=== PATIENT | female | born 1980 | race Caucasian/White ===

== ENCOUNTER → 2017-06-18 | Outpatient (CLI) | payer OTHER ==
--- NOTE | 2017-06-18 16:55 | XR ---
EXAMINATION TYPE: XR foot complete LT DATE OF EXAM: 06/18/2017 COMPARISON: NONE HISTORY: Twisted ankle TECHNIQUE: 3 views FINDINGS: Metatarsals appear intact. I see no fracture nor dislocation. There is a small plantar calc aneal spur. IMPRESSION: No acute abnormality of the left foot.
--- NOTE | 2017-06-18 16:56 | XR ---
EXAMINATION TYPE: XR ankle complete LT DATE OF EXAM: 06/18/2017 COMPARISON: NONE HISTORY: Twisted ankle TECHNIQUE: 3 views FINDINGS: Ankle mortise is anatomic. There is a small plantar calcaneal spur. I see no fracture nor d islocation. IMPRESSION: Calcaneal spurring. No fracture.
== END | disposition home or self-care (01) ==
LOC: LABWHC1 16:05
PROVIDERS: ATTEND Emergency Medicine
DX: S93.402A Sprain of unspecified ligament of left ankle, initial encounter (principal); M77.32 Calcaneal spur, left foot; S93.602A Unspecified sprain of left foot, initial encounter; N91.2 Amenorrhea, unspecified
CPT/HCPCS: 81025

== ENCOUNTER → 2017-06-27 | Outpatient (CLI) | payer OTHER ==
--- NOTE | 2017-06-27 21:37 | MR ---
Left foot MRI HISTORY: Sprain, pain Multiplanar multisequence imaging through the left foot correlated to left foot plain film 06/18/2017 Soft tissue swelling is noted over the dorsum of the foot. Subcutaneous edema changes are present. Timothy ne marrow signal is normal. No evident fracture. There is some fluid signal along the peroneal longus and brevis tendons compatible with tenosynovitis. Small amount of fluid signal also present along th e ankle flexor tendons. The Achilles tendon is intact. Plantar aponeurosis is intact. Subcutaneous ed yana also present along the ankle. Alignment is maintained. Small ankle joint effusion. IMPRESSION: Soft tissue swelling. No evident fracture.
== END | disposition home or self-care (01) ==
LOC: RADMRIMAIN 20:48
PROVIDERS: ATTEND Emergency Medicine
DX: M79.89 Other specified soft tissue disorders (principal)

== ENCOUNTER 2019-06-22 07:16 | Day surgery (SDC) | payer OTHER ==
[2019-06-18 10:44] VITALS: BMI 48.6
[~2019-06-22 07:16] MED LIST: LACTATED RINGERS 1,000 ML IV SCH; LIDOCAINE 1% 20 ML VIAL (10MG/ML) FOR IV START INTRADERMA PRN
[2019-06-22 08:12] VITALS: TEMP 98.9
[2019-06-22] MEDS ORDERED: ONDANSETRON 4 MG/2 ML VIAL ONE (10:10)
[2019-06-22] MEDS ORDERED: LIDOCAINE 1% INJ 10MG/ML (20 ML MDV) ONE (10:10)
[2019-06-22] MEDS ORDERED: PROPOFOL 10 MG/ML 20 ML VIAL IV ONE (10:10)
--- NOTE | 2019-06-22 10:35 | P.PCN ---
Date of Procedure: 06/22/19 Description of Procedure: BRIEF HISTORY: 38-year-old female who presents for outpatient EGD. The patient has a history significant for heartburn since 2003. Report worsening over the past 6 months. Patient has reflux with anything she eats or drinks. Patient also reported regurgitation, daily nausea primarily in the morning with occasional vomiting. No dysphagia or odynophagia. Patient also had hoarse throat and when heartburn is severe right upper quadrant pain which radiates into her back. She wakes up to 3 times per week with reflux. PROCEDURE PERFORMED: Esophagogastroduodenoscopy with biopsy. PREOPERATIVE DIAGNOSIS: GERD, epigastric and right upper quadrant pain. ESTIMATED BLOOD LOSS: Minimal. IV sedation per anesthesia. PROCEDURE: After informed consent was obtained, the patient was brought into the endoscopy unit. IV sedation was administered by Anesthesia under continuous monitoring. Initially the Olympus GIF-190 video endoscope was inserted into the mouth. Esophagus intubated without any difficulty. It was gradually advanced into the stomach and duodenum and carefully examined. The bulb and the second part of the duodenum appeared normal, with biopsies taken. The scope at this time was withdrawn to the stomach, adequately insufflated with air, and upon careful examination, mucosa of the antrum, body, cardia and the fundus appeared normal except for some mild scattered erythema in the antrum and body suggestive of mild gastritis with biopsies taken. The scope was then withdrawn into the esophagus. Small 1 cm hiatal hernia. The GE junction was located at 36 cm from the incisors with biopsies. The esophagus appeared normal, with mild esophageal biopsies taken. There were no erosions or ulcerations seen and the patient tolerated the procedure well. IMPRESSION: 1. Mild gastritis antrum and body, biopsied. 2. Small hiatal hernia. 3. Biopsies of the duodenum, GE junction and midesophagus. RECOMMENDATIONS: The findings of this examination were discussed with the patient and her . Follow-up with gastroenterology as previously scheduled. Await pathology from biopsies. Continue current PPI therapy, currently on omeprazole 40 mg daily.
[2019-06-22 10:45] VITALS: RESP 16
[2019-06-22] MEDS ORDERED: ONDANSETRON 4 MG/2 ML VIAL IVP ONE (10:47)
[2019-06-22 10:58] VITALS: BP 105/66; PULSE 67
== END 2019-06-22 11:40 | disposition home or self-care (01) ==
LOC: ORWHC2ENDO 07:16
PROVIDERS: ATTEND Internal Medicine
DX: K44.9 Diaphragmatic hernia without obstruction or gangrene (principal); K29.80 Duodenitis without bleeding; R59.0 Localized enlarged lymph nodes; K29.50 Unspecified chronic gastritis without bleeding; K31.7 Polyp of stomach and duodenum; K21.0 Gastro-esophageal reflux disease with esophagitis; Z87.891 Personal history of nicotine dependence; Z79.899 Other long term (current) drug therapy; Z88.4 Allergy status to anesthetic agent; Z88.0 Allergy status to penicillin
CPT/HCPCS: 81025; 88305; 43239; J2405; J2001; J2704

== ENCOUNTER → 2019-06-22 | Outpatient (CLI) | payer OTHER ==
--- NOTE | 2019-06-22 15:55 | US ---
EXAMINATION TYPE: US abdomen limited DATE OF EXAM: 06/22/2019 COMPARISON: NONE CLINICAL HISTORY: R10.13 Epigastris Pain, R10.11 RUQ Pain, R11.2 Nausea w/vomi. RUQ pain, N/V EXAM MEASUREMENTS: Liver Length: 17.4 cm Gallbladder Wall: 0.3 cm CBD: 0.6 cm Right Kidney: 10.3 x 4.0 x 5.3 cm large body habitus and bowel gas limits exam Pancreas: limited views appear wnl Liver: difficult to penetrate Gallbladder: appearance of sludge within, wall in borderline thick Evidence for sonographic Alexander's sign: YES, patient could not tolerate pressure over GB, very cinda seous CBD: wnl Right Kidney: limited views appear wnl IMPRESSION: 1. Fatty liver. 2 gallbladder sludge.
== END | disposition home or self-care (01) ==
LOC: RADUSWWP 06:43
PROVIDERS: ATTEND Family Medicine
DX: K76.0 Fatty (change of) liver, not elsewhere classified (principal); K82.8 Other specified diseases of gallbladder; R11.2 Nausea with vomiting, unspecified
CPT/HCPCS: 76705

== ENCOUNTER → 2020-07-20 | Outpatient (CLI) | payer OTHER ==
--- NOTE | 2020-07-20 14:48 | XR ---
EXAMINATION TYPE: XR abdomen 2V DATE OF EXAM: 07/20/2020 COMPARISON: NONE HISTORY: Pain TECHNIQUE: Single supine KUB image of the abdomen is obtained FINDINGS: Small bowel demonstrates no evidence for dilatation or air fluid levels. Gas and fecal material is seen in non-distended colon. No convincing evidence for pneumoperitoneum. No unusual calcifications. The lung bases are clear. The osseous structures are intact. IMPRESSION: 1. Overall nonobstructive bowel gas pattern.
== END | disposition home or self-care (01) ==
LOC: RADXRYALE 14:27
PROVIDERS: ATTEND Physician Assistant Medical
DX: R10.814 Left lower quadrant abdominal tenderness (principal); R31.9 Hematuria, unspecified
CPT/HCPCS: 74019

== ENCOUNTER 2020-09-06 11:14 | Emergency (ER) | payer OTHER ==
--- NOTE | 2020-09-06 11:21 | ED ---
URI HPI - General Chief Complaint: Upper Respiratory Infection Stated Complaint: Chest congestion Time Seen by Provider: 09/06/20 11:20 Source: patient Mode of arrival: ambulatory Limitations: no limitations - History of Present Illness Initial Comments: Patient is a 39-year-old female presenting to the emergency department with a chief complaint of cough. Patient reports the symptoms started yesterday with a sore throat and has gradually progressed into a nonproductive cough. She also reports some shortness of breath but denies any wheezing. She does report some chest discomfort after coughing fits which then immediately improves. Denies history of asthma, COPD. Patient states she is a former smoker and she stopped about 8 years ago. She does report some chills but denies any fevers or night sweats. States that she is not aware of anybody tested positive for Covid that she might have been exposed to. - Related Data Previous Rx's Medication Instructions Recorded Guaifenesin/Dextromethorphan 1 each PO BID #30 tab 09/06/20 [Mucinex Dm ER 1,200-60 mg Tab] Allergies Allergy/AdvReac Type Severity Reaction Status Date / Time amoxicillin Allergy Unknown Verified 09/06/20 12:31 cephalexin Allergy Swelling Verified 09/06/20 12:31 Penicillins Allergy Unknown Verified 09/06/20 12:31 Review of Systems ROS Statement: Those systems with pertinent positive or pertinent negative responses have been documented in the HPI. ROS Other: All systems not noted in ROS Statement are negative. Past Medical History Past Medical History: No Reported History Additional Past Medical History / Comment(s): SEVERE HEARTBURN, VOMITING FOR PAST 6 MONTHS. DVT in arms. History of Any Multi-Drug Resistant Organisms: None Reported Past Surgical History: Cholecystectomy, Tonsillectomy Past Anesthesia/Blood Transfusion Reactions: No Reported Reaction, Motion Sickness Smoking Status: Former smoker Past Alcohol Use History: Occasional Past Drug Use History: None Reported - Past Family History Father Family Medical History: Blood Disorder, Pulmonary Embolus Additional Family Medical History / Comment(s): "HAS MESH SCREENS IN LATA LEGS" General Exam Limitations: no limitations General appearance: alert, in no apparent distress, obese Head exam: Present: atraumatic, normocephalic, normal inspection Eye exam: Present: normal appearance, PERRL, EOMI Pupils: Present: normal accommodation ENT exam: Present: normal exam, normal oropharynx, mucous membranes moist, TM's normal bilaterally, normal external ear exam Neck exam: Present: normal inspection, full ROM. Absent: tenderness, lymphadenopathy Respiratory exam: Present: normal lung sounds bilaterally. Absent: respiratory distress, wheezes, rales, rhonchi, stridor, chest wall tenderness, accessory muscle use, decreased breath sounds Cardiovascular Exam: Present: regular rate, normal rhythm, normal heart sounds Extremities exam: Present: normal inspection, full ROM, normal capillary refill. Absent: tenderness Back exam: Present: normal inspection, full ROM. Absent: tenderness, CVA tenderness (R), CVA tenderness (L) Neurological exam: Present: alert, oriented X3, CN II-XII intact, normal gait Psychiatric exam: Present: normal affect, normal mood Skin exam: Present: warm, dry, intact, normal color. Absent: rash Course Vital Signs 09/06/20 09/06/20 11:16 11:24 Temperature 98.2 F Pulse Rate 79 Respiratory 18 20 Rate Blood Pressure 137/70 O2 Sat by Pulse 99 Oximetry Medical Decision Making - Medical Decision Making Patient is a 39-year-old female presenting to the emergency department chief complaint of cough. Physical examination, patient is clear to auscultation. ENT examination is unremarkable. Chest x-ray is negative. Coag testing pending. She was advised to self isolated take Tylenol if she develops a fever until she received the results of the culture testing. EKG shows sinus arrhythmia. She does not have any pleuritic chest pain. She is PERC negative. Symptoms of benign well for one day. No treatment necessary at this time. Patient will be given symptomatic relief. Vitals are within normal limits. Strict return parameters were thoroughly discussed patient was understanding and agreeable. Case discussed with physician. - EKG Data EKG Comments: Sinus arrhythmia. Ventricular rate 65, PA 130, QRS 90, QTC 430. Inverted T waves in lead 3. Disposition Clinical Impression: Bronchitis, acute, Cough Disposition: HOME SELF-CARE Condition: Stable Instructions (If sedation given, give patient instructions): Acute Bronchitis (ED) Additional Instructions: Take prescribed medication as directed. Follow with her primary care physician. Return to emergency department if symptoms worsen. Prescriptions: Guaifenesin/Dextromethorphan [Mucinex Dm ER 1,200-60 mg Tab] 1 each PO BID #30 tab Is patient prescribed a controlled substance at d/c from ED?: No Referrals: Santana Loyola DO [Primary Care Provider] - 1-2 days Time of Disposition: 12:42
--- NOTE | 2020-09-06 12:06 | XR ---
EXAMINATION TYPE: XR chest 2V DATE OF EXAM: 09/06/2020 COMPARISON: Chest x-ray October 12, 2011. HISTORY: Cough and congestion. TECHNIQUE: Frontal and lateral views of the chest are obtained. FINDINGS: There is no focal air space opacity, pleural effusion, or pneumothorax seen. The cardiac silhouette size is within normal limits. The osseous structures are intact. Cholecystectomy clips a re noted on current study. IMPRESSION: No suspicious acute pulmonary process.
[2020-09-06 12:52] VITALS: BP 139/100; PULSE 64; RESP 16; TEMP 98
== END 2020-09-06 12:50 | disposition home or self-care (01) ==
LOC: EC 11:14
DX: J20.9 Acute bronchitis, unspecified (principal); Z20.828 Contact with and (suspected) exposure to other viral communicable diseases; Z88.0 Allergy status to penicillin; Z88.1 Allergy status to other antibiotic agents; Z87.891 Personal history of nicotine dependence; Z86.718 Personal history of other venous thrombosis and embolism
CPT/HCPCS: 93005; 71046; 99284; U0003

== ENCOUNTER 2020-09-20 10:55 | Day surgery (SDC) | payer OTHER ==
[2020-09-16 09:21] VITALS: BMI 44.2
[~2020-09-20 10:55] MED LIST changes: +LIDOCAINE 1% (10MG/ML) FOR IV START INTRADERMA PRN; -LIDOCAINE 1% 20 ML VIAL (10MG/ML) FOR IV START INTRADERMA PRN
[2020-09-20 11:19] VITALS: TEMP 98.2
[2020-09-20] MEDS ORDERED: LIDOCAINE 1% INJ 10MG/ML (20 ML MDV) ONE (12:43)
[2020-09-20] MEDS ORDERED: PROPOFOL 10 MG/ML 20 ML VIAL IV ONE (12:43)
--- NOTE | 2020-09-20 13:19 | P.PCN ---
Date of Procedure: 09/20/20 Description of Procedure: BRIEF HISTORY: Patient is a 40-year-old female presenting for abnormal findings, altered bowel function, blood per rectum scheduled for colonoscopy for further evaluation. She reports symptoms of abdominal pain and altered bowel function prior to cholecystectomy. Initially after her surgery symptoms improved. However she reports alternating diarrhea and constipation as well as abdominal pain. PROCEDURE PERFORMED: Colonoscopy with biopsy. PREOPERATIVE DIAGNOSIS: Abnormal findings, blood per rectum, altered bowel function/change in bowel habits. ESTIMATED BLOOD LOSS: Minimal. IV sedation per Anesthesia. PROCEDURE: After informed consent was obtained, the patient, was brought into the endoscopy unit. IV sedation was administered by Anesthesia under continuous monitoring. Digital rectal examination was normal. Initially the Olympus CF-190 flexible v ideo colonoscope was then inserted in the rectum, gradually advanced into the cecum without any difficulty. Careful examination was performed as the scope was gradually being withdrawn. Ileocecal valve and the appendiceal orifice were visualized and appeared normal. Prep was excellent. Mucosa of the cecum, ascending colon, transverse colon, descending colon, sigmoid colon, and rectum appeared normal, with biopsies taken of the right and left colon in the setting of altered bowel function. The terminal ileum was intubated and appeared normal with biopsies taken. Retroflexion was performed in the rectum and no lesions were seen, low-grade internal hemorrhoids. The patient tolerated the procedure well. IMPRESSION: Normal-appearing colon from rectum to cecum., and normal-appearing terminal ileum with random biopsies taken of the terminal ileum as well as the right and left colon in the setting of altered bowel function Internal hemorrhoids and external hemorrhoids. RECOMMENDATIONS: Findings of this examination were discussed with the patient.. Okay to resume diet. Okay to resume medications. Await pathology from biopsies. Would recommend local hemorrhoidal care with warm baths, stool softeners, and local steroid therapy if patient has further hemorrhoidal bleeding. Repeat colonoscopy in 10 years for screening purposes.
[2020-09-20 13:26] VITALS: RESP 16
[2020-09-20 13:42] VITALS: BP 133/79; PULSE 71
== END 2020-09-20 14:22 | disposition home or self-care (01) ==
LOC: ORWHC2ENDO 10:55
PROVIDERS: ATTEND Internal Medicine
DX: K64.8 Other hemorrhoids (principal); K64.4 Residual hemorrhoidal skin tags; K21.9 Gastro-esophageal reflux disease without esophagitis; Z90.49 Acquired absence of other specified parts of digestive tract; Z87.891 Personal history of nicotine dependence; Z86.718 Personal history of other venous thrombosis and embolism; Z79.899 Other long term (current) drug therapy; Z88.1 Allergy status to other antibiotic agents; Z88.0 Allergy status to penicillin
CPT/HCPCS: 81025; 88305; 45380; J2001; J2704

== ENCOUNTER 2021-07-25 18:12 | Emergency (ER) | payer OTHER ==
[2021-07-25 19:32] VITALS: BP 122/58; PULSE 76; RESP 18; TEMP 98.2
--- NOTE | 2021-07-25 19:51 | US ---
EXAMINATION TYPE: US venous doppler duplex LE LT DATE OF EXAM: 07/25/2021 5:52 PM COMPARISON: NONE CLINICAL HISTORY: localized edema R60.0. pain left pop fossa. SIDE PERFORMED: Left TECHNIQUE: The lower extremity deep venous system is examined utilizing real time linear array sonog viviana with graded compression, doppler sonography and color-flow sonography. VESSELS IMAGED: Common Femoral Vein Deep Femoral Vein Greater Saphenous Vein * Femoral Vein Popliteal Vein Proximal Calf Veins (* superficial vessels) Left Leg: Positive for DVT. There is thrombus seen in a pair of deep vessels coming off the mid pop vein. These are believed to be the gastrocnemius vessels. These vessels are non compressible. IMPRESSION: Infrapopliteal deep venous thrombosis of the left calf. Dr. Rea Ahn discussed findings with Cammy Mary RN via the phone on 07/25/2021 7:46 PM at 7:46 PM EST, and results were acknowledged.
[2021-07-25] MEDS ORDERED: ACETAMINOPHEN TAB 500 MG TAB PO STA (20:40)
[2021-07-25 21:57] LABS: Basophils % (A) 0 %; Eosinophils # (A) 0.2 k/uL (0-0.7); Eosinophils % (A) 3 %; HGB 13.9 gm/dL (11.4-16.0); Lymphocytes # (A) 2.7 k/uL (1.0-4.8); Lymphocytes % (A) 29 %; MCH 30.2 pg (25.0-35.0); MCHC 33.9 g/dL (31.0-37.0); MCV 88.9 fL (80.0-100.0); Mean Platelet Volume 9.1; Monocytes # (A) 0.5 k/uL (0-1.0); Monocytes % (A) 5 %; Neutrophils # (A) 5.8 k/uL (1.3-7.7); Neutrophils % (A) 62 %; Platelet Count 158 k/uL (150-450); RBC 4.61 m/uL (3.80-5.40); RDW 13.5 % (11.5-15.5); WBC 9.4 k/uL (3.8-10.6)
[2021-07-25 22:02] LABS: ALT 26 U/L (4-34); AST 33 U/L (14-36); African American GFR (CKD) >90 (>60 ml/min/1.73 sqM); Albumin 4.6 g/dL (3.5-5.0); Alkaline Phosphatase 77 U/L (38-126); Anion Gap 10 mmol/L; Blood Urea Nitrogen 12 mg/dL (7-17); Calcium 9.5 mg/dL (8.4-10.2); Carbon Dioxide 23 mmol/L (22-30); Chloride 105 mmol/L (98-107); Glucose 116 mg/dL (74-99); Non-African American GFR(CKD) >90 (>60 ml/min/1.73 sqM); Potassium 4.1 mmol/L (3.5-5.1); Sodium 138 mmol/L (137-145); Total Bilirubin 0.5 mg/dL (0.2-1.3); Total Protein 7.5 g/dL (6.3-8.2)
[2021-07-25 22:38] LABS: INR 0.9 (<1.2); Partial Thromboplastin Time 19.6 sec (22.0-30.0); Prothrombin Time 9.9 sec (9.0-12.0)
[2021-07-25] MEDS ORDERED: APIXABAN 5 MG TAB PO STA (22:45)
--- NOTE | 2021-07-25 22:49 | ED ---
General Adult HPI - General Chief complaint: Recheck/Abnormal Lab/Rx Stated complaint: DVT+ Time Seen by Provider: 07/25/21 19:46 Source: patient Mode of arrival: ambulatory Limitations: no limitations - History of Present Illness Initial comments: 40-year-old female presents to the emergency room for a chief complaint of DVT. Patient reports that 4 days ago she started to have pain in the left calf. She spoke to her doctor who ordered an outpatient ultrasound and was told she had a DVT. She was sent to the emergency room. Patient denies any chest pain or shortness of breath. Does admit to left calf pain. Patient states that she has had a to professional venous thrombosis in the right arm from a gallbladder surgery in the past and was on eliquis for 6 months or so. 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 - Related Data Home Medications Medication Instructions Recorded Confirmed No Known Home Medications 07/25/21 07/25/21 Allergies Allergy/AdvReac Type Severity Reaction Status Date / Time amoxicillin Allergy Unknown Verified 07/25/21 21:36 cephalexin Allergy Swelling Verified 07/25/21 21:36 Penicillins Allergy Unknown Verified 07/25/21 21:36 Review of Systems ROS Statement: Those systems with pertinent positive or pertinent negative responses have been documented in the HPI. ROS Other: All systems not noted in ROS Statement are negative. Past Medical History Past Medical History: Deep Vein Thrombosis (DVT), GERD/Reflux, Syncope Additional Past Medical History / Comment(s): HEARTBURN back for last few months, DVT in arms after gallbladder surg. July 2019-on blood thinner for 6 mos. after, recent blood in stool, vasovagal syncope History of Any Multi-Drug Resistant Organisms: None Reported Past Surgical History: Cholecystectomy, Tonsillectomy Past Anesthesia/Blood Transfusion Reactions: Previous Problems w/ Anesthesia, Motion Sickness Additional Past Anesthesia/Blood Transfusion Reaction / Comment(s): very slow to wake up after gallbladder surg. Past Psychological History: Anxiety Smoking Status: Former smoker Past Alcohol Use History: Occasional Past Drug Use History: None Reported - Past Family History Father Family Medical History: Blood Disorder, Pulmonary Embolus Additional Family Medical History / Comment(s): "HAS MESH SCREENS IN LATA LEGS" General Exam Limitations: no limitations General appearance: alert Head exam: Present: atraumatic Eye exam: Present: normal appearance, PERRL, EOMI. Absent: scleral icterus ENT exam: Present: normal exam, mucous membranes moist Neck exam: Present: normal inspection, full ROM. Absent: tenderness Respiratory exam: Present: normal lung sounds bilaterally. Absent: respiratory distress, wheezes Cardiovascular Exam: Present: regular rate, normal rhythm, normal heart sounds Extremities exam: Present: full ROM (Full range of motion left lower extremity.), normal capillary refill (Capillary refill less than 2 seconds, DP pulse 2+ left lower extremity), calf tenderness (Patient has left calf tenderness with minimal edema. No significant erythema.) Course Vital Signs 07/25/21 19:25 Temperature 98.2 F Pulse Rate 76 Respiratory 18 Rate Blood Pressure 122/58 O2 Sat by Pulse 98 Oximetry Medical Decision Making - Medical Decision Making Ultrasound outpatient did demonstrate an infrapopliteal DVT of the left calf. Patient reports she has had GI bleeding for the past year or so. Patient did have a colonoscopy for this which revealed internal and external hemorrhoids however no other abnormalities. Laboratory evaluation was obtained and hemoglobin was 13.6. CMP unremarkable. Case was discussed with Dr. Davenport who does agree and starting patient on eliquis. Patient is currently seeing a hemat ologist and she recommend she follows up with the enforcement manager. States that the enforcement manager can decide if she needs a filter or not and refer her as needed. - Lab Data Result diagrams: 07/25/21 21:18 07/25/21 21:18 Lab Results 07/25/21 07/25/21 07/25/21 Range/Units 21:18 21:18 21:18 WBC 9.4 (3.8-10.6) k/uL RBC 4.61 (3.80-5.40) m/uL Hgb 13.9 (11.4-16.0) gm/dL Hct 41.0 (34.0-46.0) % MCV 88.9 (80.0-100.0) fL MCH 30.2 (25.0-35.0) pg MCHC 33.9 (31.0-37.0) g/dL RDW 13.5 (11.5-15.5) % Plt Count 158 (150-450) k/uL MPV 9.1 Neutrophils % 62 % Lymphocytes % 29 % Monocytes % 5 % Eosinophils % 3 % Basophils % 0 % Neutrophils # 5.8 (1.3-7.7) k/uL Lymphocytes # 2.7 (1.0-4.8) k/uL Monocytes # 0.5 (0-1.0) k/uL Eosinophils # 0.2 (0-0.7) k/uL Basophils # 0.0 (0-0.2) k/uL PT 9.9 (9.0-12.0) sec INR 0.9 (<1.2) APTT 19.6 L (22.0-30.0) sec Sodium 138 (137-145) mmol/L Potassium 4.1 (3.5-5.1) mmol/L Chloride 105 (98-107) mmol/L Carbon Dioxide 23 (22-30) mmol/L Anion Gap 10 mmol/L BUN 12 (7-17) mg/dL Creatinine 0.65 (0.52-1.04) mg/dL Est GFR (CKD-EPI)AfAm >90 (>60 ml/min/1.73 sqM) Est GFR (CKD-EPI)NonAf >90 (>60 ml/min/1.73 sqM) Glucose 116 H (74-99) mg/dL Calcium 9.5 (8.4-10.2) mg/dL Total Bilirubin 0.5 (0.2-1.3) mg/dL AST 33 (14-36) U/L ALT 26 (4-34) U/L Alkaline Phosphatase 77 (38-126) U/L Total Protein 7.5 (6.3-8.2) g/dL Albumin 4.6 (3.5-5.0) g/dL Disposition Clinical Impression: DVT (deep venous thrombosis) Disposition: HOME SELF-CARE Condition: Good Instructions (If sedation given, give patient instructions): Deep Vein Thrombosis (ED) Additional Instructions: Please follow up with enforcement manager as soon as possible. Return to the emergency room for any worsening symptoms. Is patient prescribed a controlled substance at d/c from ED?: No Referrals: Santana Loyola DO [Primary Care Provider] - 1-2 days Time of Disposition: 22:44
== END 2021-07-25 23:07 | disposition home or self-care (01) ==
LOC: EC 18:12
DX: I82.402 Acute embolism and thrombosis of unspecified deep veins of left lower extremity (principal); F41.9 Anxiety disorder, unspecified; Z87.891 Personal history of nicotine dependence
CPT/HCPCS: 36415; 80053; 85025; 85610; 85730; 99284

== ENCOUNTER → 2022-03-26 | Outpatient (CLI) | payer OTHER ==
--- NOTE | 2022-03-27 18:07 | CA ---
Transthoracic Echo Report Name: Brenda Madrid Age: 41 Gender: F : 1980 Exam Date: 03/26/2022 10:41 Exam Location: [facility] Ht (in): 63 Wt (lb): 276 Ordering Physician: Santana Loyola DO Attending/Referring Phys: Mirta Rueda PAC Behavioral Medical Director Sybil Irvin RDCS Procedure CPT: Indications: R07.9 Cardiac Hx: Technical Quality: Good Contrast 1: Total Dose (mL): Contrast 2: Total Dose (mL): MEASUREMENTS (Male / Female) Normal Values 2D ECHO LV Diastolic Diameter PLAX 4.5 cm 4.2 - 5.9 / 3.9 - 5.3 cm LV Systolic Diameter PLAX 2.7 cm IVS Diastolic Thickness 0.9 cm 0.6 - 1.0 / 0.6 - 0.9 cm LVPW Diastolic Thickness 1.2 cm 0.6 - 1.0 / 0.6 - 0.9 cm LV Relative Wall Thickness 0.5 RV Internal Dim ED PLAX 1.9 cm LA Volume 45.3 cm 18 - 58 / 22 - 52 cm M-MODE Aortic Root Diameter MM 3.0 cm LA Systolic Diameter MM 3.3 cm LA Ao Ratio MM 1.1 MV E Point Septal Separation 1.2 cm AV Cusp Separation MM 1.7 cm DOPPLER AV Peak Velocity 129.3 cm/s AV Peak Gradient 6.7 mmHg MV Area PHT 6.0 cm Mitral E Point Velocity 94.6 cm/s Mitral A Point Velocity 68.2 cm/s Mitral E to A Ratio 1.4 MV Deceleration Time 126.5 ms TR Peak Velocity 132.7 cm/s TR Peak Gradient 7.0 mmHg Right Ventricular Systolic Press 11.5 mmHg FINDINGS Left Ventricle Normal LV size and systolic function with borderline concentric LVH Left ventricular ejection fraction is estimated at 55-60_ %. Right Ventricle The right ventricle is normal in size and function. Right Atrium The right atrium is normal in size. Left Atrium The left atrium is normal in size. Mitral Valve Structurally normal mitral valve without significant stenosis or prolapse. There is a trace mitral regurgitation. Aortic Valve Structurally normal aortic valve without significant sclerosis or stenosis. There is no aortic regurgitation. Tricuspid Valve Structurally normal tricuspid valve without significant stenosis. Pulmonary artery systolic pressure is normal. Trace tricuspid regurgitation. Pulmonic Valve Structurally normal pulmonic valve without significant stenosis. There is no pulmonic regurgitation. Pericardium Normal pericardium without effusion. Aorta Normal aortic root dimension. CONCLUSIONS Normal LV size and systolic function. Mild mitral and tricuspid insufficiency. No pericardial effusion Previewed by: Dr. Son Hart MD (Electronically Signed) Final Date: 27 March 2022 18:06
--- NOTE | 2022-03-28 08:24 | EST ---
EXERCISE STRESS AGE: 41 SEX: F HT: 5'3" WT: 608 lbs. PROTOCOL: Андрей STAGE: 2 DURATION OF EXERCISE: 5 min HEART RATE REST: 77 BLOOD PRESSURE REST: 145/72 MAXIMUM HEART RATE ACHIEVED: 172 MAXIMUM BLOOD PRESSURE: 225/81 85% MPHR: 152 100% MPHR: 179 METS: 5.4 INDICATIONS: Chest pain CLINICAL INFORMATION: Baseline EKG revealed normal sinus rhythm without significant ST-T changes. Patient walked on standard Андрей protocol for 4 minutes 54 seconds and achieved a maximal heart rate of 172 beats per minute, which is well above 85% of predicted maximal. There was a lot of artifact. Patient had somewhat of a hypertensive response with a peak pressure of 220/81. EKG did not reveal any ST-segment changes to indicate ischemia. 1. By EKG criteria, this is a negative stress test with limited exercise capacity. 2. There was hypertensive response to exercise. 3. No evidence suggest any ischemia. MMODL / IJN: [id number] /
== END | disposition home or self-care (01) ==
LOC: RADNMMAIN 10:30
PROVIDERS: ATTEND Family Medicine
DX: I08.1 Rheumatic disorders of both mitral and tricuspid valves (principal); I10 Essential (primary) hypertension
CPT/HCPCS: 93017; 93306

== ENCOUNTER 2022-03-29 18:48 | Emergency (ER) | payer OTHER ==
[2022-03-29 19:08] VITALS: RESP 16; TEMP 98.2
--- NOTE | 2022-03-29 20:08 | XR ---
EXAMINATION: XR chest 2V DATE AND TIME: 03/29/2022 7:31 PM CLINICAL INDICATION: PHH; Chest Pain TECHNIQUE: Departmental protocol COMPARISON: 09/06/2020 FINDINGS: The lungs are well-expanded and clear. Previously seen 1 cm opacity superimposed over the right posterior lateral ninth rib at the left cost ophrenic angle is redemonstrated and can be seen on radiographs back to 2010, most consistent with he aled granulomatous process. The pleural spaces are negative. The cardiac silhouette is not enlarged; remainder of the mediastinal silhouette is unremarkable. The skeletal structures and soft tissues are negative for acute findings. IMPRESSION: 1. NO ACUTE PROCESS. 2. Previously seen 1 cm opacity superimposed over the right posterior lateral ninth rib at the left costophrenic angle is redemonstrated and can be seen on radiographs back to 2010, presumably healed g ranulomatous process.
[2022-03-29] MEDS ORDERED: ONDANSETRON 4 MG/2 ML VIAL IVP STA (21:09)
[2022-03-29 21:46] LABS: Basophils # (A) 0.1 k/uL (0-0.2); Basophils % (A) 1 %; Eosinophils # (A) 0.2 k/uL (0-0.7); Eosinophils % (A) 2 %; HCT 42.1 % (34.0-46.0); HGB 13.4 gm/dL (11.4-16.0); Lymphocytes # (A) 2.5 k/uL (1.0-4.8); Lymphocytes % (A) 26 %; MCH 27.8 pg (25.0-35.0); MCHC 31.9 g/dL (31.0-37.0); MCV 87.1 fL (80.0-100.0); Mean Platelet Volume 7.8; Monocytes # (A) 0.4 k/uL (0-1.0); Monocytes % (A) 4 %; Neutrophils # (A) 6.4 k/uL (1.3-7.7); Neutrophils % (A) 67 %; Platelet Count 202 k/uL (150-450); RBC 4.83 m/uL (3.80-5.40); RDW 13.2 % (11.5-15.5); WBC 9.7 k/uL (3.8-10.6)
[2022-03-29 22:09] LABS: ALT 32 U/L (4-34); AST 31 U/L (14-36); African American GFR (CKD) >90 (>60 ml/min/1.73 sqM); Alkaline Phosphatase 74 U/L (38-126); Anion Gap 5 mmol/L; Blood Urea Nitrogen 14 mg/dL (7-17); Calcium 8.5 mg/dL (8.4-10.2); Carbon Dioxide 25 mmol/L (22-30); Chloride 107 mmol/L (98-107); Glucose 94 mg/dL (74-99); Non-African American GFR(CKD) >90 (>60 ml/min/1.73 sqM); Potassium 3.7 mmol/L (3.5-5.1); Sodium 137 mmol/L (137-145); Total Bilirubin 0.5 mg/dL (0.2-1.3)
--- NOTE | 2022-03-29 22:29 | CT ---
EXAMINATION TYPE: CT angio thor/abd pel aorta DATE OF EXAM: 03/29/2022 COMPARISON: None HISTORY: chest pain CT DLP: 2848.9 mGycm Automated exposure control for dose reduction was used. CONTRAST: Performed without and with IV Contrast, patient injected with 100 mL of Isovue 370. Images obtained from the thoracic inlet to the floor the pelvis without and with IV contrast. There a re Three-D postprocessed images. The lungs are clear of consolidation. There is 1.5 cm calcified granuloma left lower lobe. There is n o pleural effusion. There is fatty infiltration of the liver. Heart size is normal. No pericardial ef fusion. There are no hilar masses. There is no mediastinal adenopathy. Thoracic aorta is intact. No aneurysm or dissection. No evidence of filling defect in the pulmonary a rteries. Pulmonary arteries appear normal. Spleen is intact. There is no pancreatic mass. There are clips from cholecystectomy. The bile ducts a re nondilated. Kidneys have normal size and contour. There is no hydronephrosis. There is no adrenal mass. There is no retroperitoneal adenopathy. Appendix is posterior and appears normal. The bladder d istends smoothly. There is no inguinal hernia. There is thinwall cystic pelvic mass that measures 8.5 cm in diameter above the right side of the uterus and consistent with ovarian cyst. There is a small er cyst on the left ovary measuring 4.2 cm. No free fluid in the pelvis. There multiple sigmoid diverticula. No diverticulitis. There is no mesenteric edema. There is no ascites or free air. No sign of a bowel obstruction. Uterus is anteverted. Thoracic vertebra have normal alignment. There is no compression fracture. Lumbar bacilio tebra have normal alignment. Disc spaces are normal. The bony pelvis is intact. The hip joints appear intact. There is 2 cm fat-containing umbilical hernia. Abnormal aorta has normal size. No aneurysm or dissection. There is arterial flow in the celiac arter y and superior mesenteric artery. There is arterial flow in the renal and iliac and femoral arteries. No hemodynamic stenosis. There is arterial flow in the inferior mesenteric artery. IMPRESSION: Negative CT angiogram of the chest abdomen pelvis. No evidence of pulmonary embolism. No suspicious p ulmonary mass. Colonic diverticulosis without diverticulitis. Bilateral large ovarian cysts and larger on the right side.
[2022-03-29] MEDS: NITROGLYCERIN SL TABS 0.4 MG TAB SUBLINGUAL PRN ×2 (22:45→22:51)
--- NOTE | 2022-03-29 23:17 | ED ---
Chest Pain HPI - General Chief Complaint: Chest Pain Stated Complaint: Chest pain Time Seen by Provider: 03/29/22 20:49 Source: patient Mode of arrival: ambulatory Limitations: no limitations - History of Present Illness Initial Comments: Patient is a 41-year-old female who presents to the emergency department with a chief complaint of chest pain. Patient states her chest pain has been occurring for 2 weeks. She states at first it felt more like chest tightness the progression of 2 weeks has became more of an aching pain, localized to the center of her chest. There is no radiation to the arms or jaw. Patient states she went to her primary care provider where she underwent stress test and echo. Patient states she was told the results were normal and because of this was not referred to cardiology. Patient has never seen a track service worker before. She has never experienced this pain before. Patient sometimes has associated nausea and sweating with the chest pain. Patient became concerned today when the chest pain started radiating to her back, sharp in nature. She also reports bilateral feet swelling. She denies pain or swelling of the legs. She denies history of aortic dissection, aortic aneurysm, heart attack, hypertension, hyperlipidemia, diabetes, coronary artery disease, and stroke. 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 No PE history. Patient is currently on Eliquis. She does not endorse shortness of breath. Family history of cardiac disease include her father who has diabetes and hypertension and her mother who has diabetes. - Related Data Home Medications Medication Instructions Recorded Confirmed Apixaban [Eliquis] 5 mg PO BID 03/29/22 03/29/22 Ibuprofen [Motrin Ib] 800 mg PO Q8H PRN 03/29/22 03/29/22 Omeprazole Magnesium [PriLOSEC OTC] 20 mg PO BID 03/29/22 03/29/22 Allergies Allergy/AdvReac Type Severity Reaction Status Date / Time amoxicillin Allergy Swelling Verified 03/29/22 23:35 cephalexin Allergy Swelling Verified 03/29/22 23:35 Penicillins Allergy Anaphylaxis Verified 03/29/22 23:35 Review of Systems ROS Statement: Those systems with pertinent positive or pertinent negative responses have been documented in the HPI. ROS Other: All systems not noted in ROS Statement are negative. Past Medical History Past Medical History: Deep Vein Thrombosis (DVT), GERD/Reflux, Syncope Additional Past Medical History / Comment(s): HEARTBURN back for last few months, DVT in arms after gallbladder surg. July 2019-on blood thinner for 6 mos. after, recent blood in stool, vasovagal syncope History of Any Multi-Drug Resistant Organisms: None Reported Past Surgical History: Cholecystectomy, Tonsillectomy Past Anesthesia/Blood Transfusion Reactions: Previous Problems w/ Anesthesia, Motion Sickness Additional Past Anesthesia/Blood Transfusion Reaction / Comment(s): very slow to wake up after gallbladder surg. Past Psychological History: Anxiety Smoking Status: Former smoker Past Alcohol Use History: Occasional Past Drug Use History: None Reported - Past Family History Father Family Medical History: Blood Disorder, Pulmonary Embolus Additional Family Medical History / Comment(s): "HAS MESH SCREENS IN LATA LEGS" General Exam Limitations: no limitations General appearance: alert Head exam: Present: atraumatic, normocephalic, normal inspection Eye exam: Present: normal appearance, PERRL, EOMI. Absent: scleral icterus, conjunctival injection, periorbital swelling Neck exam: Present: normal inspection, full ROM Respiratory exam: Present: normal lung sounds bilaterally. Absent: respiratory distress, wheezes, rales, rhonchi, stridor Cardiovascular Exam: Present: regular rate, normal rhythm, normal heart sounds. Absent: systolic murmur, diastolic murmur, rubs, gallop, clicks, JVD, S3, S4 GI/Abdominal exam: Present: soft, normal bowel sounds. Absent: distended, tenderness, guarding, rebound, rigid Extremities exam: Present: normal capillary refill, pedal edema. Absent: calf tenderness Back exam: Present: normal inspection. Absent: CVA tenderness (R), CVA tenderness (L), paraspinal tenderness, vertebral tenderness Neurological exam: Present: alert, oriented X3, CN II-XII intact Psychiatric exam: Present: normal affect, normal mood Skin exam: Present: warm, dry, intact, normal color. Absent: rash Course Vital Signs 03/29/22 03/29/22 19:05 22:49 Temperature 98.2 F Pulse Rate 69 81 Respiratory 16 16 Rate Blood Pressure 162/90 124/81 O2 Sat by Pulse 99 98 Oximetry Chest Pain MDM - MDM This is a 41-year-old female who presents for evaluation of chest pain. Thorough history and examination were performed. Patient is well-appearing and in no apparent distress. Heart sounds are normal. No murmurs, rubs, or gallops are appreciated. Bilateral pedal edema is present. Patient has a factor II mutation and multiple DVTs on Eliquis. There is no swelling or pain of the legs. No calf tenderness. Negative Homans sign. Cardiac workup was initiated. EKG shows sinus rhythm with no evidence of ST depression or elevation. Troponin and BNP are within normal limits. Chest x- ray is negative for acute process. Because patient has new onset of sharp back pain presenting with her chest pain there is suspicion for aortic dissection. My suspicion is low as patient does not have risk factors. CT angiogram was ordered which ruled out aortic dissection and other acute process. Patient had stress test and echocardiogram this week with her primary care provider. I reviewed these personally. There is no evidence to suggest any ischemia on stress test though she was hypertensive in response to exercise. Echocardiogram revealed mild mitral and tricuspid insufficiency. Patient's chest pain responded well to 2 doses of nitroglycerin. She states her chest pain is almost completely resolved. Repeat troponin is within normal limits. Heart score is 2. With patient's recent negative stress test and unremarkable echocardiogram symptoms can be managed outpatient. Patient will be discharged with referral to cardiology for further evaluation and management of her chest pain. Return parameters discussed. Patient verbalizes understanding and is agreeable to this plan. Dr. Goode is my attending. Disposition Clinical Impression: Chest pain, Nausea, Back pain Disposition: HOME SELF-CARE Condition: Good Instructions (If sedation given, give patient instructions): Chest Pain (ED) Additional Instructions: Please follow up with operations specialists in 1-2 days. Return to the emergency department if you experience new, concerning, or worsening symptoms. Is patient prescribed a controlled substance at d/c from ED?: No Referrals: Santana Loyola DO [Primary Care Provider] - 1-2 days Jack Miranda MD [STAFF PHYSICIAN] - 1-2 days Time of Disposition: 00:24
[2022-03-30 00:45] VITALS: BP 134/84; PULSE 82
== END 2022-03-30 00:45 | disposition home or self-care (01) ==
LOC: EC 18:48
DX: R07.89 Other chest pain (principal); M54.9 Dorsalgia, unspecified; R11.0 Nausea; K21.9 Gastro-esophageal reflux disease without esophagitis; Z87.891 Personal history of nicotine dependence; Z88.0 Allergy status to penicillin; Z88.1 Allergy status to other antibiotic agents; Z79.899 Other long term (current) drug therapy
CPT/HCPCS: 36415; 93005; 83880; 80053; 84484; 85025; 85730; 71046; 71275; 74174; 99285; 96374; J2405; Q9967

== ENCOUNTER → 2022-06-25 | Outpatient (CLI) | payer OTHER ==
[2022-06-25 13:32] VITALS: BP 113/75; PULSE 62; TEMP 98.8
[2022-06-25 13:44] VITALS: BMI 50.7
[2022-06-25 17:45] LABS: HCT 40.1 % (37.2-46.3); HGB 12.8 g/dL (12.0-15.0); MCH 28.2 pg (27.0-32.0); MCHC 31.9 g/dL (32.0-37.0); MCV 88.3 fL (80.0-97.0); Mean Platelet Volume 11.4 fL (9.5-12.2); NRBC Per 100 WBC 0 /100 WBCS (0.0-0.0); Platelet Count 241 X 10*3/uL (140-440); RBC 4.54 X 10*6/uL (4.10-5.20); RDW 12.8 % (11.5-14.5); WBC 7.32 X 10*3/uL (4.50-10.00)
[2022-06-25 18:07] LABS: African American GFR (CKD) 102.6 (60.0-200.0); Albumin 4.2 g/dL (3.8-4.9); Albumin/Globulin Ratio 1.56 (1.60-3.17); Anion Gap 10.7 mmol/L (10.00-18.00); BUN/Creat Ratio 16.65 Ratio (12.00-20.00); Blood Urea Nitrogen 13.7 mg/dL (9.0-27.0); Calcium 9.2 mg/dL (8.7-10.3); Carbon Dioxide 25.7 mmol/L (20.0-27.5); Globulin 2.7 g/dL (1.6-3.3); Non-African American GFR(CKD) 88.5 (60.0-200.0); Potassium 3.4 mmol/L (3.5-5.5); Total Bilirubin 0.3 mg/dL (0.30-1.20)
--- NOTE | 2022-06-26 16:17 | P.HPBAR ---
Bariatric H&P - History & Physicial H&P Date: 06/26/22 History & Physicial: Visit/CC: new patient Patient initial contact: Initial weight: Initial weight in pounds: Height: 5 ft 3 in Initial BMI: Last weight: Current weight: 129.863 kg Current weight in pounds: 286.30 Current BMI: 50.7 [place] body weight (based on NIH guidelines): 52.163 kg Excess body weight loss: The patient is a 41 year-old F who presents for Bariatric Assessment. Patient presents today for bariatric follow-up. Patient's presurgical. Her current weight is 206 pounds. Her BMI is 51. Past Medical History Past Medical History: Blood Disorder, Deep Vein Thrombosis (DVT), GERD/Reflux, Syncope Additional Past Medical History / Comment(s): HEARTBURN back for last few months, DVT in arms after gallbladder surg. July 2019-on blood thinner for 6 mos. after, and several subsequent DVT's since, Factor II mutation, recent blood/clots in stool, vasovagal syncope History of Any Multi-Drug Resistant Organisms: None Reported Past Surgical History: Cholecystectomy, Tonsillectomy Past Anesthesia/Blood Transfusion Reactions: Previous Problems w/ Anesthesia, Motion Sickness Additional Past Anesthesia/Blood Transfusion Reaction / Comm: very slow to wake up after gallbladder surg. 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, clean since - Past Family History Father Family Medical History: Blood Disorder, Pulmonary Embolus Additional Family Medical History / Comment(s): "HAS MESH SCREENS IN LATA LEGS" Surgical - Exam Vital Signs Temp Pulse BP 98.8 F 62 113/75 06/25/22 13:26 06/25/22 13:26 06/25/22 13:26 - General well developed, well nourished, no distress - Eyes PERRL - ENT normal pinna - Neck no masses - Respiratory normal expansion - Cardiovascular Rhythm: regular - Abdomen Abdomen: soft, non tender Results - Labs 06/25/22 14:13 06/25/22 14:13 Abnormal Lab Results - Last 24 Hours (Table) 06/25/22 06/25/22 Range/Units 14:13 14:13 MCHC 31.9 L (32.0-37.0) g/dL Potassium 3.4 L (3.5-5.5) mmol/L ALT 49 H (8-44) U/L Albumin/Globulin Ratio 1.56 L (1.60-3.17) g/dL Vitamin D 25-Hydroxy 27.2 L (30.0-100.0) ng/mL Diabetes panel 06/25/22 06/25/22 Range/Units 14:13 14:13 Sodium 143 (135-145) mmol/L Potassium 3.4 L (3.5-5.5) mmol/L Chloride 106 (96-109) mmol/L Carbon Dioxide 25.7 (20.0-27.5) mmol/L BUN 13.7 (9.0-27.0) mg/dL Creatinine 0.8 (0.6-1.5) mg/dL Glucose 94 (70-110) mg/dL Hemoglobin A1c 5.6 (0.0-6.0) % Calcium 9.2 (8.7-10.3) mg/dL AST 33 (13-35) U/L ALT 49 H (8-44) U/L Alkaline Phosphatase 81 (41-126) U/L Total Protein 7.0 (6.2-8.2) g/dL Albumin 4.2 (3.8-4.9) g/dL Calcium panel 06/25/22 Range/Units 14:13 Calcium 9.2 (8.7-10.3) mg/dL Albumin 4.2 (3.8-4.9) g/dL Pituitary panel 06/25/22 Range/Units 14:13 Sodium 143 (135-145) mmol/L Potassium 3.4 L (3.5-5.5) mmol/L Chloride 106 (96-109) mmol/L Carbon Dioxide 25.7 (20.0-27.5) mmol/L BUN 13.7 (9.0-27.0) mg/dL Creatinine 0.8 (0.6-1.5) mg/dL Glucose 94 (70-110) mg/dL Calcium 9.2 (8.7-10.3) mg/dL Adrenal panel 06/25/22 Range/Units 14:13 Sodium 143 (135-145) mmol/L Potassium 3.4 L (3.5-5.5) mmol/L Chloride 106 (96-109) mmol/L Carbon Dioxide 25.7 (20.0-27.5) mmol/L BUN 13.7 (9.0-27.0) mg/dL Creatinine 0.8 (0.6-1.5) mg/dL Glucose 94 (70-110) mg/dL Calcium 9.2 (8.7-10.3) mg/dL Total Bilirubin 0.30 (0.30-1.20) mg/dL AST 33 (13-35) U/L ALT 49 H (8-44) U/L Alkaline Phosphatase 81 (41-126) U/L Total Protein 7.0 (6.2-8.2) g/dL Albumin 4.2 (3.8-4.9) g/dL Bariatric Assessment & Plan Plan: Morbid obesity, BMI 51. Patient be scheduled for EGD. She'll follow-up after was performed. Bariatric Checklist Checklist: Plan: Checklist: EGD: 1. Hiatal hernia: 2. H. Pylori: HgbA1c: Vitamin D: Smoking: Former smoker Primary care physician referral: Dr. Urbina Psychiatry clearance: Cardiology clearance: Sleep study: Diet journal: VTE risk score: VTE risk level: Rehab needs at discharge:
== END ==
LOC: BARWHC3 13:09
PROVIDERS: ATTEND Surgery
DX: E66.01 Morbid (severe) obesity due to excess calories (principal); E88.81 Metabolic syndrome and other insulin resistance; E55.9 Vitamin D deficiency, unspecified; F41.9 Anxiety disorder, unspecified; K21.9 Gastro-esophageal reflux disease without esophagitis; Z68.43 Body mass index [BMI] 50.0-59.9, adult; Z86.718 Personal history of other venous thrombosis and embolism; Z87.891 Personal history of nicotine dependence; Z79.01 Long term (current) use of anticoagulants; Z79.899 Other long term (current) drug therapy; Z88.1 Allergy status to other antibiotic agents; Z88.0 Allergy status to penicillin
CPT/HCPCS: 80053; 82306; 82607; 82746; 83036; 84425; 85027; 99211

== ENCOUNTER 2022-08-16 07:58 | Day surgery (SDC) | payer OTHER ==
[2022-08-14 15:04] VITALS: BMI 51.2
[~2022-08-16 07:58] MED LIST changes: -LIDOCAINE 1% (10MG/ML) FOR IV START INTRADERMA PRN
[2022-08-16 08:57] VITALS: RESP 16; TEMP 97.8
[2022-08-16] MEDS ORDERED: LIDOCAINE 2% INJ 20 MG/ML (2 ML VIAL) ONE (09:36)
[2022-08-16] MEDS ORDERED: PROPOFOL 10 MG/ML 20 ML VIAL IV ONE (09:36)
--- NOTE | 2022-08-16 09:38 | P.GSHP ---
History of Present Illness H&P Date: 08/16/22 Chief Complaint: GERD This a 41-year-old female presents today for workup for sleeve gastrectomy. Patient's history of GERD. Her BMI is 51. Past Medical History Past Medical History: Blood Disorder, Deep Vein Thrombosis (DVT), GERD/Reflux, Syncope Additional Past Medical History / Comment(s): DVT in arms after gallbladder surg. July 2019-several subsequent DVT's lata legs since, Factor II mutation, occ. blood/clots in stool, vasovagal syncope 2004, hiatal hernia History of Any Multi-Drug Resistant Organisms: None Reported Past Surgical History: Cholecystectomy, Tonsillectomy Past Anesthesia/Blood Transfusion Reactions: Previous Problems w/ Anesthesia, Motion Sickness, Postoperative Nausea & Vomiting (PONV) Additional Past Anesthesia/Blood Transfusion Reaction / Comment(s): very slow to wake up after gallbladder surg. "gaggy when coming out" Smoking Status: Former smoker - Past Family History Father Family Medical History: Blood Disorder, Pulmonary Embolus Additional Family Medical History / Comment(s): "HAS MESH SCREENS IN LATA LEGS" Medications and Allergies Home Medications Medication Instructions Recorded Confirmed Type Apixaban [Eliquis] 5 mg PO BID 03/29/22 08/16/22 History Acetaminophen Tab [Tylenol] 1,000 mg PO Q6HR PRN 04/04/22 08/16/22 History Ondansetron [Zofran] 4 - 8 mg PO Q8H PRN 04/04/22 08/16/22 History Omeprazole(Dose Unknown) 1 tab PO HS 08/14/22 08/16/22 History Pantoprazole Sodium [Protonix] 20 mg PO BID 08/14/22 08/16/22 History hydroCHLOROthiazide [Hydrodiuril] 25 mg PO DAILY 08/14/22 08/16/22 History Allergies Allergy/AdvReac Type Severity Reaction Status Date / Time amoxicillin Allergy Swelling Verified 08/16/22 09:06 cephalexin Allergy Swelling Verified 08/16/22 09:06 Penicillins Allergy Anaphylaxis Verified 08/16/22 09:06 Surgical - Exam Vital Signs Temp Pulse Resp BP Pulse Ox 97.8 F 61 16 107/58 98 08/16/22 08:55 08/16/22 08:55 08/16/22 08:55 08/16/22 08:55 08/16/22 08:55 - General well developed, well nourished, no distress - Eyes PERRL - ENT normal pinna - Neck no masses - Respiratory normal expansion - Cardiovascular Rhythm: regular - Abdomen Abdomen: soft, non tender Assessment and Plan Assessment: GERD Morbid obesity We'll perform EGD.
--- NOTE | 2022-08-16 09:46 | P.OP ---
Date of Procedure: 08/16/22 Preoperative Diagnosis: GERD Morbid obesity Postoperative Diagnosis: Antral gastritis Sliding hiatal hernia Procedure(s) Performed: EGD Anesthesia: MAC Surgeon: Ino Maradiaga Pathology: other (Antrum) Condition: stable Disposition: PACU Description of Procedure: The patient's placed on the endoscopy table in the lateral position. She received IV sedation. The gastro-/oropharynx passed in the esophagus and stomach. Scope then placed through the pylorus. The first and second portion of the duodenum appeared normal. Scope was then brought back the antrum and this appeared mildly inflamed. A biopsies performed. The scope was then brought back and then the scope was retroflexed the remainder the stomach appeared normal. The patient had a small sliding hiatal hernia. The GE junction was at 40 cm per the distal esophagus appeared normal. The proximal esophagus appeared normal. Scope withdrawn for patient
[2022-08-16 10:07] VITALS: BP 140/80; PULSE 71
== END 2022-08-16 10:20 | disposition home or self-care (01) ==
LOC: ORWHC2ENDO 07:58
PROVIDERS: ATTEND Surgery
DX: K29.50 Unspecified chronic gastritis without bleeding (principal); K44.9 Diaphragmatic hernia without obstruction or gangrene; K21.9 Gastro-esophageal reflux disease without esophagitis; R55 Syncope and collapse; Z86.2 Personal history of diseases of the blood and blood-forming organs and certain disorders involving the immune mechanism; Z86.718 Personal history of other venous thrombosis and embolism; Z87.891 Personal history of nicotine dependence; Z87.19 Personal history of other diseases of the digestive system; Z79.890 Hormone replacement therapy; Z79.899 Other long term (current) drug therapy; Z88.1 Allergy status to other antibiotic agents; Z88.0 Allergy status to penicillin; E66.01 Morbid (severe) obesity due to excess calories
CPT/HCPCS: 43239; 81025; 88305; J2704; J2001

== ENCOUNTER → 2022-08-27 | Outpatient (CLI) | payer OTHER ==
[2022-08-27 14:55] VITALS: BP 135/79; PULSE 64; TEMP 98.5; BMI 52.2
== END ==
LOC: BARWHC3 14:34
PROVIDERS: ATTEND Surgery
DX: E66.01 Morbid (severe) obesity due to excess calories (principal); Z86.718 Personal history of other venous thrombosis and embolism; K21.9 Gastro-esophageal reflux disease without esophagitis; Z68.43 Body mass index [BMI] 50.0-59.9, adult
CPT/HCPCS: 99211

== ENCOUNTER → 2022-09-03 | Outpatient (CLI) | payer OTHER ==
[2022-09-03 10:57] VITALS: BMI 51.5
== END ==
LOC: BARWHC3 08:47
PROVIDERS: ATTEND Surgery
DX: Z71.3 Dietary counseling and surveillance (principal); Z88.0 Allergy status to penicillin; Z88.1 Allergy status to other antibiotic agents; Z87.891 Personal history of nicotine dependence; E66.01 Morbid (severe) obesity due to excess calories; Z68.43 Body mass index [BMI] 50.0-59.9, adult
CPT/HCPCS: 97804

== ENCOUNTER 2022-10-10 08:55 | Inpatient (IN) | payer OTHER ==
[~2022-10-10 08:55] MED LIST changes: +DEXAMETHASONE SOD PHOSPHATE 4 MG/ML 1 ML VIAL IV ONE; +ENOXAPARIN 40 MG/0.4 ML SYRINGE SQ PRN; -LACTATED RINGERS 1,000 ML IV SCH; +LIDOCAINE 1% (10MG/ML) FOR IV START INTRADERMA PRN; +ONDANSETRON 4 MG/2 ML VIAL IVP ONE
--- NOTE | 2022-10-10 09:51 | P.GSHP ---
History of Present Illness H&P Date: 10/10/22 Chief Complaint: Morbid obesity This is a 40-year-old female who's had lifetime problems obesity. Her BMI is 49. She presents today for laparoscopic sleeve gastrectomy. Patient's aware the risks of surgery including conversion to open procedure and injury to the stomach liver or spleen. Past Medical History Past Medical History: Blood Disorder, Deep Vein Thrombosis (DVT), GERD/Reflux, Syncope Additional Past Medical History / Comment(s): DVT in arms after gallbladder surg. July 2019-several subsequent DVT's lata legs since, Factor II mutation, occ. blood/clots in stool, vasovagal syncope 2004, hiatal hernia, gastritis, History of Any Multi-Drug Resistant Organisms: None Reported Past Surgical History: Cholecystectomy, Tonsillectomy Additional Past Surgical History / Comment(s): EGD Past Anesthesia/Blood Transfusion Reactions: Previous Problems w/ Anesthesia, Motion Sickness, Postoperative Nausea & Vomiting (PONV) Additional Past Anesthesia/Blood Transfusion Reaction / Comment(s): very slow to wake up after gallbladder surg. "gaggy when coming out" Smoking Status: Former smoker - Past Family History Father Family Medical History: Blood Disorder, Pulmonary Embolus Additional Family Medical History / Comment(s): "HAS MESH SCREENS IN LATA LEGS" Daughter(s) Family Medical History: Blood Disorder Son(s) Family Medical History: Blood Disorder Medications and Allergies Home Medications Medication Instructions Recorded Confirmed Type Apixaban [Eliquis] 5 mg PO BID 03/29/22 10/05/22 History Acetaminophen Tab [Tylenol] 1,000 mg PO Q6HR PRN 04/04/22 10/05/22 History Ondansetron [Zofran] 4 - 8 mg PO Q8H PRN 04/04/22 10/05/22 History Pantoprazole Sodium [Protonix] 20 mg PO HS 08/14/22 10/05/22 History hydroCHLOROthiazide [Hydrodiuril] 25 mg PO DAILY 08/14/22 10/05/22 History Multivitamins, Thera [Multivitamin 1 tab PO DAILY 10/05/22 10/05/22 History (formulary)] Omeprazole [PriLOSEC] 20 mg PO AC-[id number] 10/05/22 10/05/22 History Pantoprazole Sodium [Protonix] 40 mg PO QAM 10/05/22 10/05/22 History Allergies Allergy/AdvReac Type Severity Reaction Status Date / Time amoxicillin Allergy Swelling Verified 10/05/22 08:16 cephalexin Allergy Swelling Verified 10/05/22 08:16 Penicillins Allergy Anaphylaxis Verified 10/05/22 08:16 Surgical - Exam - General well developed, well nourished, no distress - Eyes PERRL - ENT normal pinna - Neck no masses - Respiratory normal expansion - Cardiovascular Rhythm: regular - Abdomen Abdomen: soft, non tender Assessment and Plan Assessment: Morbid obesity, BMI 49. Patient undergo laparoscopic sleeve gastrectomy.
[2022-10-10] MEDS: LACTATED RINGERS 1,000 ML IV SCH ×2 (10:01→12:17)
[2022-10-10] MEDS ORDERED: BUPIVACAINE (PF) 0.25% 30 ML VIAL SQ ONE ×2 (10:21→11:38)
[2022-10-10] MEDS ORDERED: KETAMINE 10 MG/ML 20 ML VIAL ONE (10:26)
[2022-10-10] MEDS ORDERED: MIDAZOLAM 2 MG/2 ML VIAL ONE (10:26)
[2022-10-10] MEDS ORDERED: SUCCINYLCHOLINE CHLORIDE 200 MG/10 ML VIAL IV ONE (10:26)
[2022-10-10] MEDS ORDERED: ROCURONIUM 10 MG/ML (5 ML VIAL) IV ONE (10:26)
[2022-10-10] MEDS ORDERED: NEOSTIGMINE 1 MG/ML 10 ML VIAL ONE (10:26)
[2022-10-10] MEDS ORDERED: HYDROmorphone (PF) 1 MG/ML ONE (10:26)
[2022-10-10] MEDS ORDERED: PROPOFOL 10 MG/ML 20 ML VIAL IV ONE (10:26)
[2022-10-10] MEDS ORDERED: fentaNYL (PF) 50 MCG/ML 2 ML AMP ONE (10:26)
[2022-10-10] MEDS ORDERED: GLYCOPYRROLATE 0.2 MG/ML 2 ML VIAL ONE (10:26)
[2022-10-10] MEDS ORDERED: LIDOCAINE 2% INJ 20 MG/ML (2 ML VIAL) ONE (10:26)
[2022-10-10] MEDS ORDERED: KETOROLAC 15 MG/ML 1 ML VIAL ONE (10:26)
[2022-10-10] MEDS: ceFAZolin 3 GM in SODIUM CHLORIDE 0.9% 100 ML IVPB PRN ×2 (10:29→10:45)
[2022-10-10 10:54] LABS: INR 1.6 (<1.2); Prothrombin Time 16.7 sec (9.0-12.0)
[2022-10-10] MEDS ORDERED: NALOXONE 0.4 MG/ML 1 ML VIAL IV PRN (11:43)
[2022-10-10] MEDS ORDERED: ACETAMINOPHEN ORAL SUSP (PEDS) 3,840 MG/120 ML BOTTLE PO PRN (11:43)
[2022-10-10] MEDS ORDERED: HYDROcodone/APAP 15 ML SOLUTION PO PRN (11:43)
[2022-10-10] MEDS ORDERED: HYOSCYAMINE ORAL DROPS 1.875 MG/15 ML BOTTLE PO PRN (11:43)
[2022-10-10] MEDS ORDERED: SIMETHICONE 40 MG/0.6 ML DROPS 2,000 MG/30 ML BOTTLE PO PRN (11:43)
[2022-10-10] MEDS ORDERED: ONDANSETRON 4 MG/2 ML VIAL IVP PRN (11:43)
--- NOTE | 2022-10-10 11:43 | P.OP ---
Date of Procedure: 10/10/22 Preoperative Diagnosis: Morbid obesity, BMI 50 Postoperative Diagnosis: Morbid obesity, BMI 50 Procedure(s) Performed: Laparoscopic sleeve gastrectomy Repair of hiatal hernia Anesthesia: FELIPE Surgeon: Ino Maradiaga Estimated Blood Loss (ml): 10 Pathology: other (Stomach) Condition: stable Disposition: PACU Description of Procedure: The patient was placed on the operating room table in the supine position. She received general anesthesia and then was placed in dorsal lithotomy position. Her abdomen was prepped and draped in sterile fashion. The skin incision sites were anesthetized 1% local Xylocaine. And then the skin was incised with an 11 blade in the left lateral position. Using a blade less trocar under direct visualization the peritoneal cavity was entered. The abdomen was insufflated and then a 5 mm laparoscope was placed into the peritoneal cavity. A 5 mm trocar was placed in the right epigastric, and right lateral position. A 15 mm trocar was placed in the supra-umbilical position and another 5 mm trocar was placed in the left lateral position. The left lateral lobe of the liver was retracted. The stomach was visualized. There appeared to be a hiatal hernia. The crura were dissected free using Harmonic scissors in a 360 fashion around the esophagus and then the crural repair was performed using 2-0 Ethibond suture. The greater curvature of the stomach was then dissected using the Harmonic scissors. The dissection occurred approximately 5 cm from the pylorus to the level of the left vianca. There was no hiatal hernia seen. At this point a 40- [place] bougie dilator was placed the oropharynx and passed into the esophagus and into the stomach by the [employer]. The sleeve gastrectomy was performed by using the powered echelon stapler with a seam guard buttress material. Sequential firings of the stapler were performed. The gastric remnant was then brought out through the 15 mm trocar site. The dilator was withdrawn. And a orogastric tube was replaced into the stomach. The stomach was insufflated with 200 mL of methylene blue normal saline. There was no evidence of extravasation. The abdomen was irrigated there is no bleeding seen. The Harvey-Chanelle device was used to close the 15 mm trocar with 0 Vicryl. Skin was closed with interrupted 3-0 Monocryl sutures once the trochars withdrawn. Dermabond dressing was applied. Patient was sent to recovery in stable condition.
[2022-10-10] MEDS ORDERED: ONDANSETRON 4 MG/2 ML VIAL IVP ONE (12:14)
[2022-10-10] MEDS: HYDROmorphone 0.5 MG/0.5 ML SYRINGE IVP PRN ×3 (12:21→14:49)
[2022-10-10] MEDS: ALBUTEROL NEBULIZED 2.5 MG/3 ML INHALATION SCH ×3 (12:53→20:31)
[2022-10-10] MEDS: 0.9% NACL WITH KCL 20 MEQ/L 1,000 ML IV SCH ×2 (13:37→22:23)
[2022-10-10] MEDS: KETOROLAC 15 MG/ML 1 ML VIAL IVP SCH ×3 (13:44→23:32)
--- NOTE | 2022-10-10 14:56 | P.CONS ---
History of Present Illness - Reason for Consult Consult date: 10/10/22 medical management - History of Present Illness Patient is a 42-year-old female with history of morbid obesity, GERD, history of DVT on anticoagulation presenting for elective laparoscopic sleeve gastrectomy, and repair of hiatal hernia. Patient is now status post surgery. [facility] physicians has been consulted for medical management. She denies any significant chest pain, shortness breath, urinary or bowel complaints. She has some abdominal pain from her surgery. Patient seen and examined at bedside. Pertinent positives and negatives as discussed in HPI, a complete review of systems was performed and all other systems are negative. Vital signs reviewed General: nontoxic, no distress, appears at stated age, morbidly obese Derm: warm, dry Head: atraumatic, normocephalic, symmetric Eyes: EOMI, no lid lag, anicteric sclera, pupils equal round reactive to light ENT: Nose and ears atraumatic, no thrush, no pharyngeal erythema Neck: No thyromegaly Mouth: no lip lesion, mucus membranes moist Cardiovascular: S1S2 reg, no murmur, no edema Lungs: clear to auscultation bilateral, no rhonchi, no rales, no wheeze, no accessory muscle use, supplemental oxygen Abdominal: soft, nontender to palpation, no guarding, no appreciable organomegaly, dressing clean and dry Ext: no gross muscle atrophy Neuro: CN II-XII grossly intact Psych: Alert, oriented, appropriate affect Assessment/Plan: Status post elective laparoscopic sleeve gastrectomy Hiatal hernia repair Morbid obesity -Pain management per surgery -will recommend full dose anticoagulation with either Lovenox or home eliquis when appropriate Lower extremity edema - hold hydrochlorothiazide GERD History of DVT Factor 2 mutation -Medications reviewed and reconciled Thank you for allowing us to participate in the care of this pleasant patient. Do not hesitate to contact us with questions. Someone can be reached from the [facility] hospitalist group all hours of the day at [phone] or via Mirego. Past Medical History Past Medical History: Blood Disorder, Deep Vein Thrombosis (DVT), GERD/Reflux, Syncope Additional Past Medical History / Comment(s): DVT in arms after gallbladder surg. July 2019-several subsequent DVT's lata legs since, Factor II mutation, occ. blood/clots in stool, vasovagal syncope 2004, hiatal hernia, gastritis, History of Any Multi-Drug Resistant Organisms: None Reported Past Surgical History: Cholecystectomy, Tonsillectomy Additional Past Surgical History / Comment(s): EGD Past Anesthesia/Blood Transfusion Reactions: Previous Problems w/ Anesthesia, Motion Sickness, Postoperative Nausea & Vomiting (PONV) Additional Past Anesthesia/Blood Transfusion Reaction / Comm: very slow to wake up after gallbladder surg. "gaggy when coming out" Past Psychological History: No Psychological Hx Reported Smoking Status: Former smoker Past Alcohol Use History: Occasional Additional Past Alcohol Use History / Comment(s): SMOKED 20 YEARS, 1 PPD, QUIT 2013 Past Drug Use History: Cocaine Additional Drug Use History / Comment(s): "recovering addict, clean for 20yrs' - Past Family History Father Family Medical History: Blood Disorder, Pulmonary Embolus Additional Family Medical History / Comment(s): "HAS MESH SCREENS IN LATA LEGS" Daughter(s) Family Medical History: Blood Disorder Son(s) Family Medical History: Blood Disorder Medications and Allergies Home Medications Medication Instructions Recorded Confirmed Type Apixaban [Eliquis] 5 mg PO BID 03/29/22 10/10/22 History Acetaminophen Tab [Tylenol] 1,000 mg PO Q6HR PRN 04/04/22 10/10/22 History Ondansetron [Zofran] 4 - 8 mg PO Q8H PRN 04/04/22 10/10/22 History hydroCHLOROthiazide [Hydrodiuril] 25 mg PO DAILY 08/14/22 10/10/22 History Multivitamins, Thera [Multivitamin 1 tab PO DAILY 10/05/22 10/10/22 History (formulary)] Omeprazole [PriLOSEC] 20 mg PO AC-BRKFST 10/05/22 10/10/22 History Pantoprazole Sodium [Protonix] 40 mg PO QAM 10/05/22 10/10/22 History Allergies Allergy/AdvReac Type Severity Reaction Status Date / Time amoxicillin Allergy Swelling Verified 10/10/22 09:55 cephalexin Allergy Swelling Verified 10/10/22 09:55 Penicillins Allergy Anaphylaxis Verified 10/10/22 09:55 Physical Exam Vitals: Vital Signs Temp Pulse Pulse Resp BP BP Pulse Ox 10/10/22 13:13 52 L 16 121/59 94 L 10/10/22 12:58 50 L 16 123/66 94 L 10/10/22 12:43 69 16 120/63 98 10/10/22 12:28 57 L 16 129/66 98 10/10/22 12:12 57 L 16 123/69 95 10/10/22 11:57 97.0 F L 84 16 117/57 96 10/10/22 09:54 97.1 F L 78 18 145/60 98 Intake and Output 10/09/22 10/10/22 10/10/22 22:59 06:59 14:59 Intake Total 1700 Output Total 10 Balance 1690 Intake: IV 1700 Output: Estimated Blood Loss 10 Other: Weight 123.6 kg Results Labs: Abnormal Lab Results - Last 24 Hours (Table) 10/10/22 Range/Units 10:16 PT 16.7 H (9.0-12.0) sec INR 1.6 H (<1.2)
[2022-10-10] MEDS: ceFAZolin 3 GM in SODIUM CHLORIDE 0.9% 100 ML IVPB SCH (17:59)
[2022-10-10] MEDS: ENOXAPARIN 40 MG/0.4 ML SYRINGE SQ SCH (22:14)
--- NOTE | 2022-10-11 00:16 | US ---
EXAMINATION TYPE: US venous doppler duplex UE BI DATE OF EXAM: 10/10/2022 COMPARISON: NONE CLINICAL HISTORY: r/o DVT. Hx of DVT in right arm. Left arm pain near elbow. On blood thinners SIDE PERFORMED: Bilateral Right Arm: Negative for DVT Left Arm: Negative for DVT IMPRESSION: No sign of deep vein thrombosis in both arms..
[2022-10-11 01:41] VITALS: RESP 18
[2022-10-11] MEDS: ceFAZolin 3 GM in SODIUM CHLORIDE 0.9% 100 ML IVPB SCH (03:03)
[2022-10-11] MEDS: KETOROLAC 15 MG/ML 1 ML VIAL IVP SCH ×2 (05:45→13:07)
[2022-10-11] MEDS: 0.9% NACL WITH KCL 20 MEQ/L 1,000 ML IV SCH (05:48)
[2022-10-11 07:43] VITALS: TEMP 98
[2022-10-11] MEDS ORDERED: 1: THIAMINE 100 MG, FOLIC ACID 1 MG, POTASSIUM CHLORIDE 20 MEQ in SODIUM CHLORIDE 0.9% 1 IVPB SCH ×5 (08:00)
[2022-10-11] MEDS: ENOXAPARIN 40 MG/0.4 ML SYRINGE SQ SCH (08:04)
[2022-10-11] MEDS: HYDROmorphone 0.5 MG/0.5 ML SYRINGE IVP PRN (08:04)
[2022-10-11] MEDS: ALBUTEROL NEBULIZED 2.5 MG/3 ML INHALATION SCH ×2 (08:21→12:05)
[2022-10-11 08:52] LABS: Basophils # (A) 0.02 X 10*3/uL (0.00-0.10); Basophils % (A) 0.2 %; Eosinophils # (A) 0 X 10*3/uL (0.04-0.35); Eosinophils % (A) 0 %; HCT 37.9 % (37.2-46.3); HGB 12.3 g/dL (12.0-15.0); Immature Grans, Automated 0.4 %; Lymphocytes # (A) 1.63 X 10*3/uL (0.90-5.00); Lymphocytes % (A) 19.7 %; MCH 28.7 pg (27.0-32.0); MCHC 32.5 g/dL (32.0-37.0); MCV 88.6 fL (80.0-97.0); Mean Platelet Volume 11.6 fL (9.5-12.2); Monocytes # (A) 0.58 X 10*3/uL (0.20-1.00); NRBC Per 100 WBC 0 /100 WBCS (0.0-0.0); Neutrophils # (A) 6.03 X 10*3/uL (1.80-7.70); Neutrophils % (A) 72.7 %; Platelet Count 231 X 10*3/uL (140-440); RBC 4.28 X 10*6/uL (4.10-5.20); RDW 13.3 % (11.5-14.5); WBC 8.29 X 10*3/uL (4.50-10.00)
[2022-10-11] MEDS ORDERED: PANTOPRAZOLE 40 MG/10 ML VIAL IV SCH (09:00)
[2022-10-11] MEDS ORDERED: hydroCHLOROthiazide 25 MG TAB PO SCH (09:00)
[2022-10-11] MEDS ORDERED: MULTIVITAMINS, THERA 1 EACH TAB PO SCH (09:00)
[2022-10-11] MEDS ORDERED: NON FORMULARY DRUG (Pantoprazole Sodium [Protonix] 20 MG Tablet) PO SCH (09:00)
[2022-10-11 09:22] LABS: African American GFR (CKD) 105.4 (60.0-200.0); Non-African American GFR(CKD) 90.9 (60.0-200.0)
[2022-10-11 09:23] LABS: Anion Gap 12.3 mmol/L (10.00-18.00); Blood Urea Nitrogen 7.5 mg/dL (9.0-27.0); Calcium 8.7 mg/dL (8.7-10.3); Carbon Dioxide 22.7 mmol/L (20.0-27.5); Phosphorus 2.7 mg/dL (2.4-5.1); Potassium 4.1 mmol/L (3.5-5.5)
[2022-10-11 09:24] LABS: Magnesium 2.1 mg/dL (1.5-2.4)
[2022-10-11] MEDS ORDERED: ACETAMINOPHEN IV (For NPO) 1,000 MG in EMPTY BAG 1 BAG IVPB SCH (10:00)
--- NOTE | 2022-10-11 11:20 | P.PN ---
Subjective Progress Note Date: 10/11/22 Principal diagnosis: s/p gastric sleeve Hospital Course: Patient is a 42-year-old female with history of morbid obesity, GERD, history of DVT on anticoagulation presenting for elective laparoscopic sleeve gastrectomy, and repair of hiatal hernia. Patient is now status post surgery. [facility] physicians has been consulted for medical management. Subjective: Patient seen and examined at bedside. No acute events overnight. She denies any significant chest pain, shortness breath, urinary complaints. Her abdominal pain has mostly subsided. She is complaining of some lower back pain. She denies passing any gas or having a bowel movement. Currently tolerating ice chips, will soon be advanced to liquid diet. Pertinent positives and negatives as discussed above, a complete review of systems was performed and all other systems are negative. Vitals Signs Reviewed. General: nontoxic, no distress, appears at stated age, morbidly obese Derm: warm, dry Head: atraumatic, normocephalic, symmetric Eyes: EOMI, no lid lag, anicteric sclera, pupils equal round reactive to light ENT: Nose and ears atraumatic Neck: No thyromegaly Mouth: no lip lesion, mucus membranes moist Cardiovascular: S1S2 reg, no murmur, no edema Lungs: clear to auscultation bilateral, no rhonchi, no rales, no wheeze, no accessory muscle use Abdominal: soft, nontender to palpation, no guarding, no appreciable organomegaly, surgical sites appear clean and dry Ext: no gross muscle atrophy Neuro: CN II-XII grossly intact Psych: Alert, oriented, appropriate affect Assessment and Plan: Status post elective laparoscopic sleeve gastrectomy Hiatal hernia repair Morbid obesity -Pain management per surgery -will recommend full dose anticoagulation with either Lovenox or home eliquis when appropriate -Advance diet as tolerated Lower extremity edema - hold hydrochlorothiazide GERD History of DVT Factor 2 mutation -Medications reviewed and reconciled Thank you for allowing us to participate in the care of this pleasant patient. Do not hesitate to contact us with questions. Someone can be reached from the [facility] hospitalist group all hours of the day at [phone] or via perfect serve. Objective - Vital Signs Vital signs: Vital Signs Temp 98.0 F 10/11/22 07:43 Pulse 61 10/11/22 07:43 Resp 18 10/11/22 07:43 BP 113/81 10/11/22 07:43 Pulse Ox 95 10/11/22 07:43 FiO2 Intake & Output 10/10/22 10/11/22 10/11/22 18:59 06:59 18:59 Intake Total 1700 Output Total 11 Balance 1689 Weight 123.6 kg Intake: IV 1700 Output: Urine 1 Estimated Blood Loss 10 Other: Voiding Method Toilet # Voids 3 - Labs CBC & Chem 7: 10/11/22 06:01 10/11/22 06:01 Labs: Abnormal Lab Results - Last 24 Hours (Table) 10/11/22 10/11/22 Range/Units 06:01 06:01 Eosinophils # 0 L (0.04-0.35) X 10*3/uL BUN 7.5 L (9.0-27.0) mg/dL
[2022-10-11 11:30] VITALS: BMI 49.8
--- NOTE | 2022-10-11 14:09 | P.DS ---
Providers Date of admission: 10/10/22 09:38 Expected date of discharge: 10/11/22 Attending physician: Ino Maradiaga Consults: 10/10/22 11:43 Consult Physician Routine Consulting Provider: Chyna Sosa Consult Reason/Comments: Management Do you want consulting provider notified?: Yes Primary care physician: Santana Loyola Hospital Course: Discharge diagnosis 1. Morbid obesity status post laparoscopic sleeve gastrectomy and repair of hiatal hernia Hospital course This is a 42-year-old female with a known history of morbid obesity. She is status post laparoscopic cholecystectomy gastrectomy and repair of hiatal hernia. She has tolerated diet. She is having flatus. Her pain is controlled. She is up and ambulating. She's afebrile. She is stable for discharge. Please refer to chart for any further details. Physician High Tension Tester note has been reviewed by physician. Signing provider agrees with the documented findings, assessment, and plan of care. Patient Condition at Discharge: Stable Plan - Discharge Summary Discharge Rx Participant: Yes New Discharge Prescriptions: New Omeprazole [PriLOSEC] 40 mg PO DAILY #30 cap Ondansetron Odt [Zofran Odt] 4 mg PO Q8HR PRN #9 tab PRN Reason: Nausea bisacodyL [Dulcolax] 5 mg PO DAILY PRN #10 tab PRN Reason: Constipation Simethicone 40 mg/0.6 ml Drops [Mylicon Drops] 40 mg PO PCHS PRN #30 ml PRN Reason: Gas Continue Acetaminophen Tab [Tylenol] 1,000 mg PO Q6HR PRN #30 tab PRN Reason: Pain Apixaban [Eliquis] 5 mg PO BID #0 hydroCHLOROthiazide [Hydrodiuril] 25 mg PO DAILY Multivitamins, Thera [Multivitamin (formulary)] 1 tab PO DAILY Discontinued Pantoprazole Sodium [Protonix] 40 mg PO QAM Ondansetron [Zofran] 4 - 8 mg PO Q8H PRN PRN Reason: Nausea Omeprazole [PriLOSEC] 20 mg PO AC-BRKFST Discharge Medication List hydroCHLOROthiazide [Hydrodiuril] 25 mg PO DAILY 08/14/22 [History] Multivitamins, Thera [Multivitamin (formulary)] 1 tab PO DAILY 10/05/22 [History] Acetaminophen Tab [Tylenol] 1,000 mg PO Q6HR PRN #30 tab 10/11/22 [Rx] Apixaban [Eliquis] 5 mg PO BID #0 10/11/22 [Rx] Omeprazole [PriLOSEC] 40 mg PO DAILY #30 cap 10/11/22 [Rx] Ondansetron Odt [Zofran Odt] 4 mg PO Q8HR PRN #9 tab 10/11/22 [Rx] Simethicone 40 mg/0.6 ml Drops [Mylicon Drops] 40 mg PO PCHS PRN #30 ml 10/11/22 [Rx] bisacodyL [Dulcolax] 5 mg PO DAILY PRN #10 tab 10/11/22 [Rx] [facility] [facility] [place] [place] 1 Week Activity/Diet/Wound Care/Special Instructions: No lifting over 10 pounds Shower daily. No soaking or tub baths for 2 weeks Very light activity until you are reevaluated at your follow up appointment with your surgeon Avoid straws or carbonated beverages ok to resume Eliquis tomorrow 10/12/22 Discharge Disposition: HOME SELF-CARE
[2022-10-11 15:26] VITALS: BP 130/70; PULSE 52
== END 2022-10-11 16:24 | disposition home or self-care (01) | DRG 620 ==
LOC: EDSTATUS 08:55 → 2ORMAIN 09:38 → 4SSUR 11:50
PROVIDERS: ADMIT Surgery; ATTEND Surgery
PROC: 0BQT4ZZ Repair Diaphragm, Percutaneous Endoscopic Approach (ICD-10-PCS; 2022-10-10)
PROC: 0DB64Z3 Excision of Stomach, Percutaneous Endoscopic Approach, Vertical (ICD-10-PCS; principal; 2022-10-10 11:10)
DX: E66.01 Morbid (severe) obesity due to excess calories (principal); D68.2 Hereditary deficiency of other clotting factors; Z68.43 Body mass index [BMI] 50.0-59.9, adult; K44.9 Diaphragmatic hernia without obstruction or gangrene; R60.0 Localized edema; K21.9 Gastro-esophageal reflux disease without esophagitis; M54.50 Low back pain, unspecified; K29.50 Unspecified chronic gastritis without bleeding; Z86.718 Personal history of other venous thrombosis and embolism; Z79.01 Long term (current) use of anticoagulants; Z87.891 Personal history of nicotine dependence; Z79.899 Other long term (current) drug therapy; Z88.0 Allergy status to penicillin; Z88.1 Allergy status to other antibiotic agents
CPT/HCPCS: 80051; 81025; 82310; 82565; 83735; 84100; 84520; 85025; 85610; 88307; 93970

== ENCOUNTER → 2022-10-12 | Outpatient (CLI) | payer OTHER ==
[2022-10-12 11:47] VITALS: BP 142/87; PULSE 67; RESP 12; TEMP 98.5
== END ==
LOC: BARWHC3 10:26
PROVIDERS: ATTEND Surgery
DX: E66.01 Morbid (severe) obesity due to excess calories (principal); Z88.1 Allergy status to other antibiotic agents; Z88.0 Allergy status to penicillin; Z87.891 Personal history of nicotine dependence
CPT/HCPCS: 99211

== ENCOUNTER 2022-10-15 15:47 | Emergency (ER) | payer OTHER ==
[2022-10-15 16:40] LABS: Basophils % (A) 1 %; Eosinophils # (A) 0.1 k/uL (0-0.7); Eosinophils % (A) 1 %; HCT 40.8 % (34.0-46.0); HGB 14.2 gm/dL (11.4-16.0); Lymphocytes # (A) 1.3 k/uL (1.0-4.8); Lymphocytes % (A) 18 %; MCH 29.3 pg (25.0-35.0); MCHC 34.7 g/dL (31.0-37.0); MCV 84.5 fL (80.0-100.0); Mean Platelet Volume 8.5; Monocytes # (A) 0.3 k/uL (0-1.0); Monocytes % (A) 4 %; Neutrophils # (A) 5.4 k/uL (1.3-7.7); Neutrophils % (A) 75 %; Platelet Count 244 k/uL (150-450); RBC 4.83 m/uL (3.80-5.40); RDW 13.1 % (11.5-15.5); WBC 7.2 k/uL (3.8-10.6)
[2022-10-15] MEDS ORDERED: SODIUM CHLORIDE 0.9% 1,000 ML IV STA (16:40)
[2022-10-15 16:46] LABS: INR 1.1 (<1.2); Prothrombin Time 11.4 sec (9.0-12.0)
[2022-10-15 16:52] LABS: ALT 76 U/L (4-34); AST 52 U/L (14-36); African American GFR (CKD) >90 (>60 ml/min/1.73 sqM); Albumin 4.2 g/dL (3.5-5.0); Alkaline Phosphatase 73 U/L (38-126); Anion Gap 11 mmol/L; Blood Urea Nitrogen 15 mg/dL (7-17); Carbon Dioxide 21 mmol/L (22-30); Chloride 107 mmol/L (98-107); Glucose 92 mg/dL (74-99); Non-African American GFR(CKD) >90 (>60 ml/min/1.73 sqM); Potassium 3.9 mmol/L (3.5-5.1); Sodium 139 mmol/L (137-145); Total Bilirubin 0.6 mg/dL (0.2-1.3); Total Protein 6.6 g/dL (6.3-8.2)
--- NOTE | 2022-10-15 17:08 | XR ---
EXAMINATION TYPE: XR chest 2V DATE OF EXAM: 10/15/2022 4:51 PM COMPARISON: Chest radiographs from by 04/04/2022 TECHNIQUE: XR chest 2V Frontal and lateral views of the chest. CLINICAL INDICATION:Female, 42 years old with history of near syncope; FINDINGS: Lungs/Pleura: There is no evidence of pleural effusion, focal consolidation, or pneumothorax. Simila r left lower lobe calcified granuloma as seen on prior CT imaging on 03/21/2022. Pulmonary vascularity: Unremarkable. Heart/mediastinum: Cardiomediastinal silhouette is unremarkable. Musculoskeletal: No acute osseous pathology. IMPRESSION: No acute cardiopulmonary disease/process.
[2022-10-15 17:15] LABS: Appearance,Urine Clear (Clear); Bacteria,Urine Rare /hpf; Bilirubin,Urine Negative (Negative); Blood,Urine Trace (Negative); Color,Urine Yellow; Glucose,Urine (UA) Negative (Negative); Hyaline Casts,Urine 1 /lpf (0-2); Ketones,Urine 4+ (Negative); Leukocyte Esterase,Urine Negative (Negative); Mucus,Urine Occasional /hpf; Nitrite,Urine Negative (Negative); PH, Urine 5.5 (5.0-8.0); Protein,Urine Negative (Negative); RBC,Urine <1 /hpf (0-5); Specific Gravity,Urine 1.017 (1.001-1.035); Squamous Epithelial Cell,Urine 2 /hpf (0-4); Urobilinogen,Urine <2.0 mg/dL (<2.0); WBC,Urine 1 /hpf (0-5)
--- NOTE | 2022-10-15 17:18 | ED ---
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 Maradiaga and has been progressing well presents emergency Department following a near syncopal episode. States she was sitting doing crafts at the table when she got lightheaded. She originally stated it was dizziness but states her head felt heavy. She'll like she was going to pass out. Chest and noticed her heart was pounding at that time. She felt nauseated. She knows that her heart rate was reading 121. She walked over to the couch and relaxed. Symptoms did improve. EMS was called and symptoms are vastly improved at this time. Does still endorse mild lightheadedness. Denies any nausea. Denies any chest pain. States she did feel short of breath when these symptoms started. Denies any abdominal pain, nausea, vomiting. Denies any diarrhea. She has been compliant with her postop diet of liquids. No history cardiac disease. She did have to hold her blood thinning medication for 3 days prior to surgery which was only 5 days ago. Since that time she was on Lovenox and restarted her Eliquis but there was a three-day period where she was on nothing. She denies any extremity swelling. Denies any other acute complaints at this time. Presents for further evaluation at this time. - Related Data Home Medications Medication Instructions Recorded Confirmed Multivitamins, Thera [Multivitamin 1 tab PO DAILY 10/05/22 10/15/22 (formulary)] Previous Rx's Medication Instructions Recorded Acetaminophen Tab [Tylenol] 1,000 mg PO Q6HR PRN #30 tab 10/11/22 Apixaban [Eliquis] 5 mg PO BID #0 10/11/22 Omeprazole [PriLOSEC] 40 mg PO DAILY #30 cap 10/11/22 Ondansetron Odt [Zofran Odt] 4 mg PO Q8HR PRN #9 tab 10/11/22 Simethicone 40 mg/0.6 ml Drops 40 mg PO PCHS PRN #30 ml 10/11/22 [Mylicon Drops] bisacodyL [Dulcolax] 5 mg PO DAILY PRN #10 tab MDD 15MG 10/11/22 Allergies Allergy/AdvReac Type Severity Reaction Status Date / Time amoxicillin Allergy Swelling Verified 10/15/22 16:04 cephalexin Allergy Swelling Verified 10/15/22 16:04 Penicillins Allergy Anaphylaxis Verified 10/15/22 16:04 Review of Systems ROS Statement: Those systems with pertinent positive or pertinent negative responses have been documented in the HPI. Review of Systems: CONST: Denies fever EYES: Denies blurry vision ENT: Denies nasal congestion C/V: Denies Chest pain RESP: Denies shortness of breath GI: Denies abdominal pain : Denies dysuria SKIN: Denies rash. MSK: Denies joint pain. NEURO: Denies headache ROS Other: All systems not noted in ROS Statement are negative. Past Medical History Past Medical History: Blood Disorder, Deep Vein Thrombosis (DVT), GERD/Reflux, Syncope Additional Past Medical History / Comment(s): DVT in arms after gallbladder surg. July 2019-several subsequent DVT's lata legs since, Factor II mutation, occ. blood/clots in stool, vasovagal syncope 2004, hiatal hernia, gastritis, History of Any Multi-Drug Resistant Organisms: None Reported Past Surgical History: Cholecystectomy, Tonsillectomy Additional Past Surgical History / Comment(s): EGD Past Anesthesia/Blood Transfusion Reactions: Previous Problems w/ Anesthesia, Motion Sickness, Postoperative Nausea & Vomiting (PONV) Additional Past Anesthesia/Blood Transfusion Reaction / Comment(s): very slow to wake up after gallbladder surg. "gaggy when coming out" Past Psychological History: No Psychological Hx Reported Smoking Status: Former smoker Past Alcohol Use History: Occasional Past Drug Use History: Cocaine - Past Family History Father Family Medical History: Blood Disorder, Pulmonary Embolus Additional Family Medical History / Comment(s): "HAS MESH SCREENS IN LATA LEGS" Daughter(s) Family Medical History: Blood Disorder Son(s) Family Medical History: Blood Disorder General Exam - General Exam Comments Initial Comments: General: Appears in no acute distress. HEAD: Normal with no signs of head trauma. EYES: PERRLA, EOMI, conjunctiva normal, no discharge. Pupils 2 mm and equal bilaterally. ENT: Hearing grossly intact, normal oropharynx. RESPIRATORY: Clear breath sounds bilaterally. No wheezes, rales, or rhonchi. C/V: Regular rate and rhythm. S1 and S2 auscultated, no edema, peripheral pulses 2+ and intact throughout ABD: Abd is soft, nontender, nondistended EXT: Normal range of motion, no obvious deformity SKIN: No rashes or lesions observed on exposed skin. NEURO: Alert and oriented 4. No focal sensory strength deficits. NIH of 0. GCS of 15. Limitations: no limitations Course Vital Signs 10/15/22 10/15/22 10/15/22 15:54 17:00 18:59 Temperature 97.7 F 97.8 F Pulse Rate 79 73 76 Respiratory 20 18 20 Rate Blood Pressure 107/71 116/78 118/80 O2 Sat by Pulse 100 98 97 Oximetry Medical Decision Making - Medical Decision Making Based on the patient's presentation and physical exam, the patient had a near syncopal episode at home. Had recent gastric sleeve surgery. Also has a history of blood clots and is chronically on blood thinners but did have her hold her thinners during the surgery. Surgery was less than 1 week ago. At sh ortness of breath and diaphoresis during the near syncopal episode. Most of her symptoms have since resolved. I did discuss with her that I would like to obtain a cardiopulmonary workup. Cannot completely rule out the possibility of blood clot due to her recently holding her blood thinning medication as well. Therefore we will obtain a screening d-dimer in addition to the labs above. She was in agreement this plan. She'll be given a 1 L fluid bolus. Vital signs within acceptable limits at this time. Laboratory studies are remarkable for an elevated d-dimer of 1.54. Troponin is undetectable. She is mildly elevated AST and ALT. Remainder of the labs are unremarkable. Urinalysis is still pending at this time. EKG reveals no signs of acute ischemia. Chest x-ray as interpreted myself revealed no acute bony traumatic process. No evidence of infiltrate or consolidation. No pneum othorax. Acute cardio pulmonary process. Due to the patient's altered d-dimer, we'll obtain a CT PE as well as a CT abdomen and pelvis due to her recent surgery. She was in agreement with this plan. I did update her on the results thus far.Patient's CT imaging is interpreted by myself revealed no evidence of PE. There are findings consistent with a gastric sleeve procedure which the patient recently had. No evidence of acute infiltrates and lungs. No other acute abdominal process observed. After the patient results of CT imaging. She is feeling improved at this time. Urinalysis did return at this time and revealed 4+ ketones. No evidence of UTI. I did discuss with the patient and appears that she is dehydrated. Vital signs remained within acceptable limits. She is feeling improved. She'll be discharged home at this time. She expressed understanding. Strict return precautions were discussed. She is due to follow-up with her surgeon next week. Discussed proper hydration. She will continue to follow her liquid diet. I instructed the patient to follow up with their PCP in the next 1-3 days. I explained that the patient should return to the emergency department if they experience any worsening symptoms. Strict return precautions were discussed with the patient. The patient expressed understanding of these instructions. I answered all questions that the patient had. The patient was discharged home in good condition with their prescriptions and follow up information. - Lab Data Result diagrams: 10/15/22 16:13 10/15/22 16:13 Lab Results 10/15/22 10/15/22 10/15/22 Range/Units 16:13 16:13 16:13 WBC 7.2 (3.8-10.6) k/uL RBC 4.83 (3.80-5.40) m/uL Hgb 14.2 (11.4-16.0) gm/dL Hct 40.8 (34.0-46.0) % MCV 84.5 (80.0-100.0) fL MCH 29.3 (25.0-35.0) pg MCHC 34.7 (31.0-37.0) g/dL RDW 13.1 (11.5-15.5) % Plt Count 244 (150-450) k/uL MPV 8.5 Neutrophils % 75 % Lymphocytes % 18 % Monocytes % 4 % Eosinophils % 1 % Basophils % 1 % Neutrophils # 5.4 (1.3-7.7) k/uL Lymphocytes # 1.3 (1.0-4.8) k/uL Monocytes # 0.3 (0-1.0) k/uL Eosinophils # 0.1 (0-0.7) k/uL Basophils # 0.0 (0-0.2) k/uL PT 11.4 (9.0-12.0) sec INR 1.1 (<1.2) D-Dimer (<0.60) mg/L FEU Sodium 139 (137-145) mmol/L Potassium 3.9 (3.5-5.1) mmol/L Chloride 107 (98-107) mmol/L Carbon Dioxide 21 L (22-30) mmol/L Anion Gap 11 mmol/L BUN 15 (7-17) mg/dL Creatinine 0.59 (0.52-1.04) mg/dL Est GFR (CKD-EPI)AfAm >90 (>60 ml/min/1.73 sqM) Est GFR (CKD-EPI)NonAf >90 (>60 ml/min/1.73 sqM) Glucose 92 (74-99) mg/dL Plasma Lactic Acid Chong (0.7-2.0) mmol/L Calcium 9.0 (8.4-10.2) mg/dL Total Bilirubin 0.6 (0.2-1.3) mg/dL AST 52 H (14-36) U/L ALT 76 H (4-34) U/L Alkaline Phosphatase 73 (38-126) U/L Troponin I (0.000-0.034) ng/mL Total Protein 6.6 (6.3-8.2) g/dL Albumin 4.2 (3.5-5.0) g/dL Urine Color Urine Appearance (Clear) Urine pH (5.0-8.0) Ur Specific Vaughn (1.001-1.035) Urine Protein (Negative) Urine Glucose (UA) (Negative) Urine Ketones (Negative) Urine Blood (Negative) Urine Nitrite (Negative) Urine Bilirubin (Negative) Urine Urobilinogen (<2.0) mg/dL Ur Leukocyte Esterase (Negative) Urine RBC (0-5) /hpf Urine WBC (0-5) /hpf Ur Squamous Epith Cells (0-4) /hpf Urine Bacteria (None) /hpf Hyaline Casts (0-2) /lpf Urine Mucus (None) /hpf 10/15/22 10/15/22 10/15/22 Range/Units 16:13 16:13 16:44 WBC (3.8-10.6) k/uL RBC (3.80-5.40) m/uL Hgb (11.4-16.0) gm/dL Hct (34.0-46.0) % MCV (80.0-100.0) fL MCH (25.0-35.0) pg MCHC (31.0-37.0) g/dL RDW (11.5-15.5) % Plt Count (150-450) k/uL MPV Neutrophils % % Lymphocytes % % Monocytes % % Eosinophils % % Basophils % % Neutrophils # (1.3-7.7) k/uL Lymphocytes # (1.0-4.8) k/uL Monocytes # (0-1.0) k/uL Eosinophils # (0-0.7) k/uL Basophils # (0-0.2) k/uL PT (9.0-12.0) sec INR (<1.2) D-Dimer 1.54 H (<0.60) mg/L FEU Sodium (137-145) mmol/L Potassium (3.5-5.1) mmol/L Chloride (98-107) mmol/L Carbon Dioxide (22-30) mmol/L Anion Gap mmol/L BUN (7-17) mg/dL Creatinine (0.52-1.04) mg/dL Est GFR (CKD-EPI)AfAm (>60 ml/min/1.73 sqM) Est GFR (CKD-EPI)NonAf (>60 ml/min/1.73 sqM) Glucose (74-99) mg/dL Plasma Lactic Acid Chong 0.9 (0.7-2.0) mmol/L Calcium (8.4-10.2) mg/dL Total Bilirubin (0.2-1.3) mg/dL AST (14-36) U/L ALT (4-34) U/L Alkaline Phosphatase (38-126) U/L Troponin I <0.012 (0.000-0.034) ng/mL Total Protein (6.3-8.2) g/dL Albumin (3.5-5.0) g/dL Urine Color Urine Appearance (Clear) Urine pH (5.0-8.0) Ur Specific Vaughn (1.001-1.035) Urine Protein (Negative) Urine Glucose (UA) (Negative) Urine Ketones (Negative) Urine Blood (Negative) Urine Nitrite (Negative) Urine Bilirubin (Negative) Urine Urobilinogen (<2.0) mg/dL Ur Leukocyte Esterase (Negative) Urine RBC (0-5) /hpf Urine WBC (0-5) /hpf Ur Squamous Epith Cells (0-4) /hpf Urine Bacteria (None) /hpf Hyaline Casts (0-2) /lpf Urine Mucus (None) /hpf 10/15/22 Range/Units 16:56 WBC (3.8-10.6) k/uL RBC (3.80-5.40) m/uL Hgb (11.4-16.0) gm/dL Hct (34.0-46.0) % MCV (80.0-100.0) fL MCH (25.0-35.0) pg MCHC (31.0-37.0) g/dL RDW (11.5-15.5) % Plt Count (150-450) k/uL MPV Neutrophils % % Lymphocytes % % Monocytes % % Eosinophils % % Basophils % % Neutrophils # (1.3-7.7) k/uL Lymphocytes # (1.0-4.8) k/uL Monocytes # (0-1.0) k/uL Eosinophils # (0-0.7) k/uL Basophils # (0-0.2) k/uL PT (9.0-12.0) sec INR (<1.2) D-Dimer (<0.60) mg/L FEU Sodium (137-145) mmol/L Potassium (3.5-5.1) mmol/L Chloride (98-107) mmol/L Carbon Dioxide (22-30) mmol/L Anion Gap mmol/L BUN (7-17) mg/dL Creatinine (0.52-1.04) mg/dL Est GFR (CKD-EPI)AfAm (>60 ml/min/1.73 sqM) Est GFR (CKD-EPI)NonAf (>60 ml/min/1.73 sqM) Glucose (74-99) mg/dL Plasma Lactic Acid Chong (0.7-2.0) mmol/L Calcium (8.4-10.2) mg/dL Total Bilirubin (0.2-1.3) mg/dL AST (14-36) U/L ALT (4-34) U/L Alkaline Phosphatase (38-126) U/L Troponin I (0.000-0.034) ng/mL Total Protein (6.3-8.2) g/dL Albumin (3.5-5.0) g/dL Urine Color Yellow Urine Appearance Clear (Clear) Urine pH 5.5 (5.0-8.0) Ur Specific Vaughn 1.017 (1.001-1.035) Urine Protein Negative (Negative) Urine Glucose (UA) Negative (Negative) Urine Ketones 4+ H (Negative) Urine Blood Trace H (Negative) Urine Nitrite Negative (Negative) Urine Bilirubin Negative (Negative) Urine Urobilinogen <2.0 (<2.0) mg/dL Ur Leukocyte Esterase Negative (Negative) Urine RBC <1 (0-5) /hpf Urine WBC 1 (0-5) /hpf Ur Squamous Epith Cells 2 (0-4) /hpf Urine Bacteria Rare H (None) /hpf Hyaline Casts 1 (0-2) /lpf Urine Mucus Occasional H (None) /hpf - EKG Data -: EKG Interpreted by Me EKG Comments: 12-lead Electrocardiogram Interpretation Note EKG was reviewed and interpreted by myself. 12-lead ECG performed at 1618 is interpreted by me as revealing normal sinus rhythm at a rate of 63 beats per minute. [place] is normal. [place] interval is 144 ms, QRS duration is 106 ms, QTc is 398 ms. Isolated T-wave inversion in lead III, which is chronic and seen in EKG from April 2022.. There were no acute ST or T wave abnormalities to suggest myoc ardial ischemia or injury. R wave progression across the precordium was satisfactory. By my interpretation this EKG is non-diagnostic for acute ischemia. When compared with EKG from April 2022. No acute changes. Chronic T-wave inversion in lead III. Disposition Clinical Impression: Near syncope, Dehydration Disposition: HOME SELF-CARE Condition: Good Instructions (If sedation given, give patient instructions): Dehydration (DC) Is patient prescribed a controlled substance at d/c from ED?: No Referrals: Santana Loyola DO [Primary Care Provider] - 1-2 days Time of Disposition: 18:15
--- NOTE | 2022-10-15 17:52 | CT ---
EXAMINATION TYPE: CT chest angio for PE CT DLP: 687.3 mGycm, Automated exposure control for dose reduction was used. DATE OF EXAM: 10/15/2022 5:28 PM COMPARISON: Chest radiograph from same day. CT 03/21/2022 CLINICAL INDICATION:Female, 42 years old with history of elevated dimer, concern for PE; 5 days post- op bariatric sx. c/o light-headed, dizzy, nausea, increased HR TECHNIQUE/CONTRAST: CTA scan of the thorax is performed with IV Contrast, patient injected with 100 mL of Isovue 370, pul monary embolism protocol. MIP images are created and reviewed. FINDINGS: Pulmonary Artery: There is no evidence for a filling defect within the pulmonary vasculature to sugge st acute pulmonary embolism. The pulmonary artery is of normal size. Lungs/Pleura: No evidence of focal consolidation, pleural effusion or pneumothorax. Airway: Large airways are patent. Heart: Heart is within normal limits for size.. Vasculature: No evidence of aortic aneurysm. Mediastinum: No gross evidence of adenopathy. Musculoskeletal: No acute osseous abnormalities Soft Tissues: Unremarkable. Lower neck: No significant findings. Upper Abdomen: Post surgical changes in the gastric lumen. Small hiatal hernia. IMPRESSION: 1. No evidence of pulmonary embolism. No evidence of focal consolidation. 2. Postsurgical changes of the gastric lumen without evidence for organizing fluid collection. There is a small hiatal hernia noted. 3. Granulomatous changes of the lungs . 4. Hepatic steatosis. Radiology out
--- NOTE | 2022-10-15 17:57 | CT ---
EXAMINATION TYPE: CT abdomen pelvis w con CT DLP: 2280.9 mGycm, Automated exposure control for dose reduction was used. DATE OF EXAM: 10/15/2022 5:28 PM COMPARISON: CT abdomen pelvis most recent from CLINICAL INDICATION:Female, 42 years old with history of recent sleeve procedure, near syncope; 5 day s post-op bariatric sx. c/o light-headed, dizzy, nausea, increased HR TECHNIQUE: Axial CT of the abdomen and pelvis. Sagittal and coronal reformats were created on a [employer] workstation. Contrast used:100 mL of Isovue 370 with IV Contrast, Oral contrast used: without Oral Contrast FINDINGS: LOWER CHEST: Unremarkable ABDOMEN LIVER: Unremarkable GALLBLADDER AND BILE DUCTS: The gallbladder is surgically absent. PANCREAS: Lipomatous atrophy changes to the pancreas. SPLEEN: Small splenule is present. ADRENAL GLANDS: Unremarkable. KIDNEYS AND URETERS: No evidence of hydronephrosis or renal calculus. The ureters are unremarkable. PELVIS BLADDER: Unremarkable REPRODUCTIVE: The uterus is enlarged with suspected low-attenuation fibroids. Right ovary enlarged me asuring up to 4.9 x 3.8 cm with 2 dominant follicles measuring up to 2.1 cm. ABDOMEN & PELVIS STOMACH AND BOWEL: No evidence of bowel obstruction. Postsurgical changes to the gastric lumen with o ut evidence of organizing fluid collection. There is a small hiatal hernia. The appendix is normal. PERITONEUM: No evidence of pneumoperitoneum or free fluid. VASCULATURE: No evidence of aortic aneurysm. MUSCULOSKELETAL: No acute osseous abnormalities LYMPH NODES: No gross evidence for lymphadenopathy. SOFT TISSUE/ABDOMINAL WALL: Intra-abdominal wall on the lower quadrant subcutaneous probable post inj ection changes. Post surgical changes anterior midline abdominal wall. IMPRESSION: 1. Postoperative change the gastric lumen with small hiatal hernia. No evidence of organizing fluid collection. There is mild postsurgical changes around the greater curvature of the gastric lumen whic h would be expected for recent surgery. 2. Fibroid uterus. 3. Right ovarian enlargement with 2 dominant follicles.
[2022-10-15 18:59] VITALS: BP 118/80; PULSE 76; RESP 20; TEMP 97.8
== END 2022-10-15 18:59 | disposition home or self-care (01) ==
LOC: EC 15:47
DX: R55 Syncope and collapse (principal); E86.0 Dehydration; Z86.718 Personal history of other venous thrombosis and embolism; K21.9 Gastro-esophageal reflux disease without esophagitis; Z87.891 Personal history of nicotine dependence; Z88.0 Allergy status to penicillin; Z88.8 Allergy status to other drugs, medicaments and biological substances; Z79.899 Other long term (current) drug therapy
CPT/HCPCS: 36415; 93005; 85379; 80053; 83605; 84484; 85025; 85610; 81001; 71046; 71275; 74177; 99285; 96360; Q9967

== ENCOUNTER → 2023-05-15 | Outpatient (CLI) | payer OTHER ==
--- NOTE | 2023-05-16 08:59 | XR ---
EXAMINATION TYPE: XR thoracic spine complete DATE OF EXAM: 05/15/2023 CLINICAL HISTORY: pain TECHNIQUE: Frontal, lateral, and swimmer's view of thoracic spine are obtained. COMPARISON: None. FINDINGS: Thoracic spine show satisfactory alignment without evidence of acute fracture or dislocatio n. Vertebral body heights are preserved. Mild scattered degenerative disc space narrowing and spondy losis. Visualized ribs are unremarkable. IMPRESSION: No acute fracture or dislocation is seen in the thoracic spine. ICD 10 NO FRACTURE, INIT IAL EVALUATION
== END | disposition home or self-care (01) ==
LOC: RADXRYALE 16:40
PROVIDERS: ATTEND Physician Assistant Medical
DX: M54.6 Pain in thoracic spine (principal)
CPT/HCPCS: 72072

== ENCOUNTER 2023-12-26 11:24 | Emergency (ER) | payer BC ==
[2023-12-26 11:45] VITALS: PULSE 52
[2023-12-26] MEDS ORDERED: IOPAMIDOL CONTRAST (ORAL USE) VIAL PO PRN (12:21)
--- NOTE | 2023-12-26 12:31 | P.GSCN ---
History of Present Illness Consult date: 12/26/23 Reason for Consult: Epigastric pain History of present illness: This is a 43-year-old female who is a previous gastric sleeve surgery. Patient has not been seen. Clinical for approximately 1 and half years. Patient states that she has developed intermittent left upper quadrant epigastric pain. She denies any significant reflux. Patient is at extremely good weight loss with approximate 160 pounds of weight loss. Past Medical History Past Medical History: Blood Disorder, Deep Vein Thrombosis (DVT), GERD/Reflux, Syncope Additional Past Medical History / Comment(s): DVT in arms after gallbladder surg. July 2019-several subsequent DVT's lata legs since, Factor II mutation, occ. blood/clots in stool, vasovagal syncope 2004, hiatal hernia, gastritis, History of Any Multi-Drug Resistant Organisms: None Reported Past Surgical History: Bariatric Surgery, Cholecystectomy, Tonsillectomy Additional Past Surgical History / Comment(s): EGD Past Anesthesia/Blood Transfusion Reactions: Previous Problems w/ Anesthesia, Motion Sickness, Postoperative Nausea & Vomiting (PONV) Additional Past Anesthesia/Blood Transfusion Reaction / Comm: very slow to wake up after gallbladder surg. "gaggy when coming out" Past Psychological History: No Psychological Hx Reported Smoking Status: Former smoker Past Alcohol Use History: Occasional Past Drug Use History: Cocaine - Past Family History Father Family Medical History: Blood Disorder, Pulmonary Embolus Additional Family Medical History / Comment(s): "HAS MESH SCREENS IN LATA LEGS" Daughter(s) Family Medical History: Blood Disorder Son(s) Family Medical History: Blood Disorder Medications and Allergies Home Medications Medication Instructions Recorded Confirmed Type Multivitamins, Thera [Multivitamin 1 tab PO DAILY 10/05/22 10/15/22 History (formulary)] Acetaminophen Tab [Tylenol] 1,000 mg PO Q6HR PRN #30 tab 10/11/22 10/15/22 Rx Apixaban [Eliquis] 5 mg PO BID #0 10/11/22 10/15/22 Rx Omeprazole [PriLOSEC] 40 mg PO DAILY #30 cap 10/11/22 10/15/22 Rx Ondansetron Odt [Zofran Odt] 4 mg PO Q8HR PRN #9 tab 10/11/22 10/15/22 Rx Simethicone 40 mg/0.6 ml Drops 40 mg PO PCHS PRN #30 ml 10/11/22 10/15/22 Rx [Mylicon Drops] bisacodyL [Dulcolax] 5 mg PO DAILY PRN #10 tab MDD 15MG 10/11/22 10/15/22 Rx Allergies Allergy/AdvReac Type Severity Reaction Status Date / Time amoxicillin Allergy Swelling Verified 12/26/23 11:33 cephalexin Allergy Swelling Verified 12/26/23 11:33 Penicillins Allergy Anaphylaxis Verified 12/26/23 11:33 Surgical - Exam Vital Signs Temp Pulse Resp BP Pulse Ox 98.3 F 52 L 16 128/79 100 12/26/23 11:33 12/26/23 11:33 12/26/23 11:33 12/26/23 11:33 12/26/23 11:33 - General well developed, well nourished, no distress - Eyes PERRL - ENT normal pinna - Neck no masses - Respiratory normal expansion - Cardiovascular Rhythm: regular - Abdomen Abdomen: soft, non tender Assessment and Plan Assessment: Intermittent epigastric left upper quadrant pain. Patient will undergo CT scan of the abdomen pelvis with oral and IV contrast. We will wait for results for further recommendation. Patient will need at minimum an outpatient EGD.
[2023-12-26] MEDS ORDERED: METOCLOPRAMIDE 5 MG/ML 2 ML VIAL IVP STA (12:47)
[2023-12-26 12:54] LABS: Basophils % (A) 1 %; Eosinophils % (A) 1 %; HCT 39.1 % (34.0-46.0); HGB 12.9 gm/dL (11.4-16.0); Hypochromasia Slight; Lymphocytes # (A) 1.9 k/uL (1.0-4.8); Lymphocytes % (A) 36 %; MCH 27.8 pg (25.0-35.0); MCHC 32.9 g/dL (31.0-37.0); MCV 84.5 fL (80.0-100.0); Mean Platelet Volume 8.5; Monocytes # (A) 0.3 k/uL (0-1.0); Monocytes % (A) 5 %; Neutrophils # (A) 3.1 k/uL (1.3-7.7); Neutrophils % (A) 57 %; Platelet Count 228 k/uL (150-450); RBC 4.63 m/uL (3.80-5.40); RDW 12.9 % (11.5-15.5); WBC 5.4 k/uL (3.8-10.6)
[2023-12-26 13:14] LABS: ALT 17 U/L (4-34); AST 28 U/L (14-36); African American GFR (CKD) >90 (>60 ml/min/1.73 sqM); Albumin 4.4 g/dL (3.5-5.0); Alkaline Phosphatase 58 U/L (38-126); Anion Gap 6 mmol/L; Blood Urea Nitrogen 12 mg/dL (7-17); Calcium 9.1 mg/dL (8.4-10.2); Carbon Dioxide 27 mmol/L (22-30); Chloride 107 mmol/L (98-107); Glucose 86 mg/dL (74-99); Non-African American GFR(CKD) >90 (>60 ml/min/1.73 sqM); Sodium 140 mmol/L (137-145); Total Bilirubin 0.7 mg/dL (0.2-1.3); Total Protein 7.4 g/dL (6.3-8.2)
--- NOTE | 2023-12-26 13:22 | ED ---
Abdominal Pain HPI - General Chief Complaint: Abdominal Pain Stated Complaint: GI blockage Time Seen by Provider: 12/26/23 11:40 Source: patient, RN notes reviewed Mode of arrival: ambulatory Limitations: no limitations - History of Present Illness Initial Comments: 43-year-old female presents emergency department chief complaint of unable to get food down. Patient states that she had a gastric sleeve procedure in 2021 she states she has had excessive weight loss. States she had no complications until recently she started developing severe pain when she tries to eat or drink. She states she states pain in her epigastric region she states that she cannot get fluids down now. Patient denies fevers or chills denies any change in bowel habits no other complaints. - Related Data Home Medications Medication Instructions Recorded Confirmed Omeprazole 20 mg PO BID 12/26/23 12/26/23 Previous Rx's Medication Instructions Recorded Apixaban [Eliquis] 5 mg PO BID #0 10/11/22 Metoclopramide [Reglan] 10 mg PO TID PRN #20 tab 12/26/23 Allergies Allergy/AdvReac Type Severity Reaction Status Date / Time amoxicillin Allergy Swelling Verified 12/26/23 12:50 cephalexin Allergy Swelling Verified 12/26/23 12:50 Penicillins Allergy Anaphylaxis Verified 12/26/23 12:50 Review of Systems ROS Statement: Those systems with pertinent positive or pertinent negative responses have been documented in the HPI. ROS Other: All systems not noted in ROS Statement are negative. Past Medical History Past Medical History: Blood Disorder, Deep Vein Thrombosis (DVT), GERD/Reflux, Syncope Additional Past Medical History / Comment(s): DVT in arms after gallbladder surg. July 2019-several subsequent DVT's lata legs since, Factor II mutation, occ. blood/clots in stool, vasovagal syncope 2004, hiatal hernia, gastritis, History of Any Multi-Drug Resistant Organisms: None Reported Past Surgical History: Bariatric Surgery, Cholecystectomy, Tonsillectomy Additional Past Surgical History / Comment(s): EGD Past Anesthesia/Blood Transfusion Reactions: Previous Problems w/ Anesthesia, Motion Sickness, Postoperative Nausea & Vomiting (PONV) Additional Past Anesthesia/Blood Transfusion Reaction / Comment(s): very slow to wake up after gallbladder surg. "gaggy when coming out" Past Psychological History: No Psychological Hx Reported Smoking Status: Former smoker Past Alcohol Use History: Occasional Past Drug Use History: Cocaine - Past Family History Father Family Medical History: Blood Disorder, Pulmonary Embolus Additional Family Medical History / Comment(s): "HAS MESH SCREENS IN LATA LEGS" Daughter(s) Family Medical History: Blood Disorder Son(s) Family Medical History: Blood Disorder General Exam Limitations: no limitations General appearance: alert, in no apparent distress Head exam: Present: atraumatic, normocephalic, normal inspection Eye exam: Present: normal appearance, PERRL, EOMI. Absent: scleral icterus, conjunctival injection, periorbital swelling ENT exam: Present: normal exam, normal oropharynx, mucous membranes moist Neck exam: Present: normal inspection. Absent: tenderness, meningismus, lymphadenopathy Respiratory exam: Present: normal lung sounds bilaterally. Absent: respiratory distress, wheezes, rales, rhonchi, stridor Cardiovascular Exam: Present: regular rate, normal rhythm, normal heart sounds. Absent: systolic murmur, diastolic murmur, rubs, gallop, clicks GI/Abdominal exam: Present: soft, normal bowel sounds. Absent: distended, tenderness, guarding, rebound, rigid Course Vital Signs 12/26/23 11:33 Temperature 98.3 F Pulse Rate 52 L Respiratory 16 Rate Blood Pressure 128/79 O2 Sat by Pulse 100 Oximetry Medical Decision Making - Medical Decision Making Was pt. sent in by a medical professional or institution (ANANTH Askew, SENIOR BUSINESS PROCESS ANALYST, urgent care, hospital, or [facility]...) When possible be specific @ -No Did you speak to anyone other than the patient for history (EMS, parent, family, police, friend...)? What history was obtained from this source @ -No Did you review nursing and triage notes (agree or disagree)? Why? @ -I reviewed and agree with nursing and triage notes Were old charts reviewed (outside hosp., previous admission, EMS record, old EKG, old radiological studies, urgent care reports/EKG's, [facility] records)? Report findings @ -No old charts were reviewed Differential Diagnosis (chest pain, altered mental status, abdominal pain women, abdominal pain men, vaginal bleeding, weakness, fever, dyspnea, syncope, heada mika, dizziness, GI bleed, back pain, seizure, CVA, palpatations, mental health, musculoskeletal)? @ -[Differential Abdominal Pain Women: Appendicitis, Cholecystitis, diverticulosis, ischemic bowel, pancreatitis, hepatitis, UTI, gastroenteritis, AAA, incarcerated hernia, bowel obstruction, constipation, inflammatory bowel, hepatitis, peptic ulcer disease, splenic infarction, perforated viscus, vulvitis, ovarian torsion, PID, kidney stone, placenta abruption, this is not meant to be an all-inclusive list EKG interpreted by me (3pts min.). @ -None X-rays interpreted by me (1pt min.). @ -None done CT interpreted by me (1pt min.). @ -CT the abdomen pelvis showing hiatal hernia, ovarian cyst U/S interpreted by me (1pt. min.). @ -None done What testing was considered but not performed or refused? (CT, X-rays, U/S, labs)? Why? @ -None What meds were considered but not given or refused? Why? @ -None Did you discuss the management of the patient with other professionals (professionals i.e. , PA, SENIOR BUSINESS PROCESS ANALYST, lab, RT, psych nurse, social worker health services, morale officer, teacher, custody officer, case worker)? Give summary @ -Dr. Maradiaga came and evaluated the patient recommended CT with oral contrast and IV contrast. He was updated on results will follow for EGD. Was smoking cessation discussed for >3mins.? @ -No Was critical care preformed (if so, how long)? @ -No Were there social determinants of health that impacted care today? How? (Homelessness, low income, unemployed, alcoholism, drug addiction, acuna sportation, low edu. Level, literacy, decrease access to med. care, senior care, rehab)? @ -No Was there de-escalation of care discussed even if they declined (Discuss DNR or withdrawal of care, Hospice)? DNR status @ -No What co-morbidities impacted this encounter? (DM, HTN, Smoking, COPD, CAD, Cancer, CVA, ARF, Chemo, Hep., AIDS, mental health diagnosis, sleep apnea, morbid obesity)? @ -None Was patient admitted / discharged? Hospital course, mention meds given and route, prescriptions, significant lab abnormalities, going to OR and other pertinent info. @ -[Discharged patient presented for epigastric pain. Patient has a hiatal hernia. Patient will continue omeprazole will follow-up for EGD. Return for as discussed. Undiagnosed new problem with uncertain prognosis? @ -No Drug Therapy requiring intensive monitoring for toxicity (Heparin, Nitro, Insulin, Cardizem)? @ -No Were any procedures done? @ -No Diagnosis/symptom? @ -[Hiatal hernia, abdominal pain Acute, or Chronic, or Acute on Chronic? @ -Acute Uncomplicated (without systemic symptoms) or Complicated (systemic symptoms)? @ -[Uncomplicated Side effects of treatment? @ -No Exacerbation, Progression, or Severe Exacerbation? @ -No Poses a threat to life or bodily function? How? (Chest pain, USA, SD, pneumonia, PE, COPD, DKA, ARF, appy, cholecystitis, CVA, Diverticulitis, Homicidal, Suicidal, threat to staff... and all critical care pts) @ -No - Lab Data Result diagrams: 12/26/23 12:47 12/26/23 12:47 Lab Results 12/26/23 12/26/23 Range/Units 12:47 12:47 WBC 5.4 (3.8-10.6) k/uL RBC 4.63 (3.80-5.40) m/uL Hgb 12.9 (11.4-16.0) gm/dL Hct 39.1 (34.0-46.0) % MCV 84.5 (80.0-100.0) fL MCH 27.8 (25.0-35.0) pg MCHC 32.9 (31.0-37.0) g/dL RDW 12.9 (11.5-15.5) % Plt Count 228 (150-450) k/uL MPV 8.5 Neutrophils % 57 % Lymphocytes % 36 % Monocytes % 5 % Eosinophils % 1 % Basophils % 1 % Neutrophils # 3.1 (1.3-7.7) k/uL Lymphocytes # 1.9 (1.0-4.8) k/uL Monocytes # 0.3 (0-1.0) k/uL Eosinophils # 0.0 (0-0.7) k/uL Basophils # 0.0 (0-0.2) k/uL Hypochromasia Slight Sodium 140 (137-145) mmol/L Potassium 4.0 (3.5-5.1) mmol/L Chloride 107 (98-107) mmol/L Carbon Dioxide 27 (22-30) mmol/L Anion Gap 6 mmol/L BUN 12 (7-17) mg/dL Creatinine 0.53 (0.52-1.04) mg/dL Est GFR (CKD-EPI)AfAm >90 (>60 ml/min/1.73 sqM) Est GFR (CKD-EPI)NonAf >90 (>60 ml/min/1.73 sqM) Glucose 86 (74-99) mg/dL Calcium 9.1 (8.4-10.2) mg/dL Total Bilirubin 0.7 (0.2-1.3) mg/dL AST 28 (14-36) U/L ALT 17 (4-34) U/L Alkaline Phosphatase 58 (38-126) U/L Total Protein 7.4 (6.3-8.2) g/dL Albumin 4.4 (3.5-5.0) g/dL Disposition Clinical Impression: Epigastric pain, Hiatal hernia Disposition: HOME SELF-CARE Condition: Stable Instructions (If sedation given, give patient instructions): Hiatal Hernia (ED) Additional Instructions: Please return to the Emergency Department if symptoms worsen or any other concerns. Prescriptions: Metoclopramide [Reglan] 10 mg PO TID PRN #20 tab PRN Reason: Nausea Is patient prescribed a controlled substance at d/c from ED?: No Referrals: Santana Loyola DO [Primary Care Provider] - 1-2 days Ino Maradiaga MD [STAFF PHYSICIAN] - 1-2 days Time of Disposition: 15:47
--- NOTE | 2023-12-26 15:09 | CT ---
EXAMINATION TYPE: CT abdomen pelvis w con DATE OF EXAM: 12/26/2023 COMPARISON: 10/15/2022 INDICATION: c/o difficulty swallowing, abd pain, h/o gastric sleeve in Oct 2022 DLP: 992.2 mGycm, Automated exposure control for dose reduction was used. CONTRAST: 100 mL of Isovue 300. Study performed with Oral Contrast TECHNIQUE: Axial images were obtained from above the diaphragm to the pubic rami in the axial plane a t 5 mm thick sections. Reconstructed images are reviewed on the computer in the coronal plane. FINDINGS: Limited CT sections are obtained the lung bases. The lung bases are clear. CT ABDOMEN: Hiatal hernia is present. Gastric sleeve is present. Liver: Moderate fatty infiltration is through the liver. Spleen: Normal Pancreas: Normal Adrenal glands: The adrenal glands are normal. Gallbladder: Surgically absent. Kidneys: No masses are evident. No hydronephrosis is present. No cysts are present. Delayed images were obtained through the kidneys, which remain unremarkable. Aorta: Normal Inferior vena cava: Normal. CT PELVIS: Loops of bowel within the abdomen and pelvis are normal. There are loops of bowel which are incom pletely distended or lack oral contrast limiting their evaluation. Appendix: Normal as visualized. Urinary bladder: Normal. Genitourinary structures: Uterus appears unremarkable. Right adnexa contains a 1.5 and 2.4 cm cyst. L eft adnexa appears unremarkable. Osseous structures: No suspicious lytic or sclerotic lesions. IMPRESSION: 1. Right ovarian cysts. 2. Hiatal hernia
[2023-12-26 16:25] VITALS: BP 114/71; RESP 18; TEMP 98
== END 2023-12-26 16:13 | disposition home or self-care (01) ==
LOC: EC 11:24
DX: K44.9 Diaphragmatic hernia without obstruction or gangrene (principal); N83.201 Unspecified ovarian cyst, right side; K21.9 Gastro-esophageal reflux disease without esophagitis; F14.90 Cocaine use, unspecified, uncomplicated; Z79.899 Other long term (current) drug therapy; Z87.891 Personal history of nicotine dependence; Z88.0 Allergy status to penicillin; Z88.8 Allergy status to other drugs, medicaments and biological substances
CPT/HCPCS: 36415; 80053; 85025; 74177; 99285; 96374; J2765; Q9967

== ENCOUNTER 2024-01-06 08:19 | Day surgery (SDC) | payer BC ==
[2024-01-01 14:50] VITALS: BMI 31.2
[~2024-01-06 08:19] MED LIST changes: -DEXAMETHASONE SOD PHOSPHATE 4 MG/ML 1 ML VIAL IV ONE; -ENOXAPARIN 40 MG/0.4 ML SYRINGE SQ PRN; +LACTATED RINGERS 1,000 ML IV SCH; -LIDOCAINE 1% (10MG/ML) FOR IV START INTRADERMA PRN; -ONDANSETRON 4 MG/2 ML VIAL IVP ONE
[2024-01-06 08:49] VITALS: TEMP 98.9
[2024-01-06] MEDS ORDERED: LIDOCAINE 1% INJ 10MG/ML (20 ML MDV) ONE (09:22)
[2024-01-06] MEDS ORDERED: PROPOFOL 10 MG/ML 20 ML VIAL IV ONE (09:22)
--- NOTE | 2024-01-06 09:24 | P.GSHP ---
History of Present Illness H&P Date: 01/06/24 Chief Complaint: Gerd, left upper quadrant pain. Is a 43-year-old female who had complaints of quadrant pain and gerd. Patient had gastric sleeve surgery several years ago. Past Medical History Past Medical History: Blood Disorder, Deep Vein Thrombosis (DVT), GERD/Reflux, Syncope Additional Past Medical History / Comment(s): DVT in arms after gallbladder surg. July 2019-several subsequent DVT's lata legs since, Factor II mutation, occ. blood/clots in stool, vasovagal syncope 2004, hiatal hernia, gastritis, HAS BEEN HAVING PROBLEMS WITH FOOD NOT GOING DOWN FOR PAST 3-4 WEEKS-HAS ONLY BEEN ABLE TO TOLERATE LIQUIDS AND VERY SOFT FOODS SINCE LAST WEEK History of Any Multi-Drug Resistant Organisms: None Reported Past Surgical History: Bariatric Surgery, Cholecystectomy, Tonsillectomy Additional Past Surgical History / Comment(s): EGD. GASTRIC SLEEVE OCT 2022 Past Anesthesia/Blood Transfusion Reactions: Previous Problems w/ Anesthesia, Motion Sickness, Postoperative Nausea & Vomiting (PONV) Additional Past Anesthesia/Blood Transfusion Reaction / Comment(s): very slow to wake up after gallbladder surg. "gaggy when coming out" Smoking Status: Former smoker - Past Family History Father Family Medical History: Blood Disorder, Pulmonary Embolus Additional Family Medical History / Comment(s): "HAS MESH SCREENS IN LATA LEGS". CLOTTING DISORDER Daughter(s) Family Medical History: Blood Disorder Additional Family Medical History / Comment(s): FACTOR II Son(s) Family Medical History: Blood Disorder Additional Family Medical History / Comment(s): ITP Medications and Allergies Home Medications Medication Instructions Recorded Confirmed Type Apixaban [Eliquis] 5 mg PO BID #0 10/11/22 01/06/24 Rx Omeprazole 20 mg PO BID 12/26/23 01/06/24 History Allergies Allergy/AdvReac Type Severity Reaction Status Date / Time amoxicillin Allergy Swelling Verified 01/06/24 08:35 cephalexin Allergy Swelling Verified 01/06/24 08:35 Penicillins Allergy Anaphylaxis Verified 01/06/24 08:35 Surgical - Exam Vital Signs Temp Pulse Resp BP Pulse Ox 98.9 F 55 L 18 118/59 100 01/06/24 08:42 01/06/24 08:42 01/06/24 08:42 01/06/24 08:42 01/06/24 08:42 - General well developed, well nourished, no distress - Eyes PERRL - ENT normal pinna, normal nares - Neck no masses - Respiratory normal expansion - Cardiovascular Rhythm: regular - Abdomen Abdomen: soft, non tender Assessment and Plan Assessment: Gerd, left upper quadrant pain. Will perform EGD.
--- NOTE | 2024-01-06 09:36 | P.OP ---
Date of Procedure: 01/06/24 Preoperative Diagnosis: , Left upper quadrant pain Gerd Postoperative Diagnosis: Hiatal hernia Antral gastritis Procedure(s) Performed: egd Anesthesia: MAC Surgeon: Ino Maradiaga Pathology: other (Antrum) Condition: stable Disposition: PACU Description of Procedure: This placed on the endoscopy table in the lateral position. She received IV sedation. Gastro/oropharynx passed in the esophagus and the stomach. Scope was then placed through the pylorus. The first and second portion of the duodenum appeared normal. Back the antrum this appeared noninflamed. A biopsy was performed. The scope was then r brought back. Patient agrees sleeve yesterday. This gastric sleeve appeared to be matured and slightly dilated. There was evidence of a hiatal hernia. The GE junction was at 38 cm. The distal esophagus appeared normal. The proximal esophagus appeared normal. The scope was then withdrawn from the patient.
[2024-01-06 09:48] VITALS: RESP 16
[2024-01-06 10:17] VITALS: BP 115/77; PULSE 50
== END 2024-01-06 10:26 | disposition home or self-care (01) ==
LOC: ORWHC2ENDO 08:19
PROVIDERS: ATTEND Surgery
DX: K29.50 Unspecified chronic gastritis without bleeding (principal); K21.9 Gastro-esophageal reflux disease without esophagitis; K44.9 Diaphragmatic hernia without obstruction or gangrene; Z86.718 Personal history of other venous thrombosis and embolism; Z87.19 Personal history of other diseases of the digestive system; Z90.89 Acquired absence of other organs; Z90.49 Acquired absence of other specified parts of digestive tract; Z87.891 Personal history of nicotine dependence; Z79.01 Long term (current) use of anticoagulants; Z88.0 Allergy status to penicillin; Z79.899 Other long term (current) drug therapy
CPT/HCPCS: 81025; 43239; J2001; J2704; 88305

== ENCOUNTER → 2024-01-17 | Outpatient (CLI) | payer BC ==
[2024-01-17 18:59] LABS: Basophils # (A) 0.02 X 10*3/uL (0.00-0.10); Basophils % (A) 0.3 %; Eosinophils # (A) 0.05 X 10*3/uL (0.04-0.35); Eosinophils % (A) 0.8 %; HCT 34.7 % (37.2-46.3); HGB 11.1 g/dL (12.0-15.0); Lymphocytes # (A) 2.03 X 10*3/uL (0.90-5.00); Lymphocytes % (A) 32.7 %; MCH 26.6 pg (27.0-32.0); Mean Platelet Volume 11.3 FL (9.5-12.2); Monocytes # (A) 0.43 X 10*3/uL (0.20-1.00); Monocytes % (A) 6.9 %; NRBC Per 100 WBC 0 X 10*3/uL (0.00-0.01); Neutrophils # (A) 3.67 X 10*3/uL (1.80-7.70); Neutrophils % (A) 59.1 %; Platelet Count 213 X 10*3/uL (140-440); RBC 4.18 X 10*6/uL (4.10-5.20); RDW 13.1 % (11.5-14.5); WBC 6.21 X 10*3/uL (4.50-10.00)
== END | disposition home or self-care (01) ==
LOC: LABPAT 14:44
PROVIDERS: ATTEND Surgery
DX: Z01.812 Encounter for preprocedural laboratory examination (principal); K21.00 Gastro-esophageal reflux disease with esophagitis, without bleeding; I49.8 Other specified cardiac arrhythmias
CPT/HCPCS: 85025; 93005

== ENCOUNTER 2024-01-22 11:45 | Inpatient (IN) | payer BC ==
[2024-01-17 09:21] VITALS: BMI 30.7
[~2024-01-22 11:45] MED LIST changes: +HYDROmorphone 0.5 MG/0.5 ML SYRINGE IVP PRN; -LACTATED RINGERS 1,000 ML IV SCH; +LIDOCAINE 1% (10MG/ML) FOR IV START INTRADERMA PRN; +MIDAZOLAM 2 MG/2 ML VIAL IV PRN
[2024-01-22] MEDS: LACTATED RINGERS 1,000 ML IV SCH (13:21)
[2024-01-22] MEDS: ACETAMINOPHEN TAB 500 MG TAB PO PRN (13:37)
[2024-01-22] MEDS: ONDANSETRON 4 MG/2 ML VIAL IVP ONE ×2 (13:37→15:26)
[2024-01-22] MEDS: HEPARIN SODIUM,PORCINE 5,000 UNIT/ML 1 ML VIAL SQ PRN (13:37)
[2024-01-22] MEDS: DEXAMETHASONE SOD PHOSPHATE 4 MG/ML 1 ML VIAL IV ONE (13:37)
[2024-01-22] MEDS: LACTATED RINGERS 1,000 ML IV ONE ×2 (14:51→17:30)
[2024-01-22] MEDS: SCOPOLAMINE 1 MG/72 HR PATCH TRANSDERM ONE (15:25)
[2024-01-22] MEDS: METOCLOPRAMIDE 5 MG/ML 2 ML VIAL IVP ONE (15:25)
--- NOTE | 2024-01-22 15:25 | P.OP ---
Date of Procedure: 01/22/24 Preoperative Diagnosis: Hiatal hernia Postoperative Diagnosis: Hiatal hernia Procedure(s) Performed: Laparoscopic repair of hiatal hernia Anesthesia: FELIPE Surgeon: Ino Maradiaga Estimated Blood Loss (ml): 5 Pathology: none sent Condition: stable Disposition: PACU Description of Procedure: T the patient was placed on the operating table in the supine position. The patient received general anesthesia. And was placed in dorsal lithotomy position. The patient was prepped and draped in the usual sterile fashion. The skin incision sites were anesthetized with 1% local Xylocaine. The skin was incised in the left periumbilical area and then using a blade less 5 mm trocar under direct visualization panel cavity was entered. After adequate insufflation the laparoscope was then placed into the peritoneal cavity. Next a 5 mm trochars placed in the right epigastric position. Another 5 millimeter trocar the right lateral position. Another 5 millimeter trocar in the left lateral position a 5 mm trocar is placed in the left epigastric position. And then the initial 5 mm trocar was exchanged for a 10 mm trocar. A four-quadrant transversus abdominis plane block was then performed with 1% local Xylocaine. The hiatal hernia was visualized. The hiatal hernia was moderate size. Using harmonic scissors the hiatal hernia was dissected in 360 degree fashion. After the crural was dissected. Gerd was reapproximate using 2-0 Ethibond suture. The stomach was inspected. There was no injury of stomach or esophagus. The trocars withdrawn. The skin was closed interrupted 3-0 Monocryl suture. Dermabond dressings applied. Patient Toller procedure well. She was sent to recovery room in stable condition.
[2024-01-22] MEDS ORDERED: HYDROmorphone 0.5 MG/0.5 ML SYRINGE IVP PRN (15:56)
[2024-01-22] MEDS ORDERED: ONDANSETRON 4 MG/2 ML VIAL IVP PRN (15:56)
[2024-01-22] MEDS ORDERED: HYDROmorphone 1 MG/ML 1 ML SYRINGE IVP PRN (15:56)
[2024-01-22] MEDS ORDERED: NALOXONE 0.4 MG/ML 1 ML VIAL IV PRN (15:56)
[2024-01-22] MEDS: KETOROLAC 15 MG/ML 1 ML VIAL IVP SCH (18:00)
--- NOTE | 2024-01-22 18:13 | P.CONS ---
History of Present Illness - Reason for Consult Consult date: 01/22/24 Medical Management Requesting physician: Ino Maradiaga - History of Present Illness History of Presenting Illness: Patient is a very pleasant 43-year-old female with a past medical history of DVTs on anticoagulation with Eliquis, bariatric surgery with gastric sleeve 10/2022, GERD and hiatal hernia. She is currently admitted under general surgery team status post elective laparoscopic repair of hiatal hernia. Surgical procedure was completed by Dr. Maradiaga. We have been consulted for medical management throughout hospitalization. Pt was seen and fully evaluated at bedside. She was still a little groggy from anesthesia from surgery. She is tolerating small amounts of clear liquids and denies any episodes of postoperative nausea or vomiting. She reports moderate post-operative pain. Denies any chest pain, palpitations, SOB. or experiencing any numbness, tingling, weakness, or swelling in her extremities. Review of systems: Pertinent positives and negatives as discussed in HPI, a complete review of systems was performed and all other systems are negative. Physical exam: Vital signs reviewed and stable. General: Nontoxic, no distress and appears stated age. Derm: Skin warm and dry, normal coloration for ethnicity. Head: Atraumatic, normocephalic and symmetric. Eyes: EOMs intact, no lid lag, and anicteric sclera Mouth: no lip lesions, mucus membranes moist Cardiovascular: regular rate and rhythm with normal S1S2, no murmur, positive posterior tibial pulses bilaterally, and cap refill < 2 seconds. Lungs: Respirations even, regular, and unlabored on room air. Lungs CTA bilaterally, no rhonchi, no rales, no wheezing, and no accessory muscle usage. Abdominal: soft, 3 laparoscopic incisions intact no bleeding Ext: ROM intact. No gross muscle atrophy, no edema, no contractures Neuro: Speech clear, face symmetrical and CN II-XII grossly intact with no noted focal neuro deficits Psych: Alert and oriented to person, place, time, and situation. Appropriate and pleasant affect. Assessment and Plan of Care: Status postelective laparoscopic repair of hiatal hernia -Management per primary admitting general surgery team including DVT prophylaxis, pain management, awound/dressing management, and advancement of diet -Recommend resumption of Eliquis 5 mg twice daily once cleared by general surgeon to resume. History of recurrent DVTs -Recommend resumption of Eliquis 5 mg twice daily once cleared by general surgeon to resume. History of GERD History of bariatric surgery, gastric sleeve -GI prophylaxis with Protonix 40 mg IVP twice daily Data reviewed: -Reviewed operative note. -Vital signs reviewed and stable. Blood pressure 137/62, heart rate 62, respiratory rate 18, temp 97.4 F, and SpO2 of 92% on room air. Thank you for allowing us to participate in the care of this pleasant patient. Do not hesitate to contact us with questions. Someone can be reached from the [facility] hospitalist group all hours of the day at [phone] [employer]. Patient was seen independently by Nurse Practitioner. This document was prepared using [employer] dictation software. Please allow for errors in metalizing machine operator while rare they do occur. Past Medical History Past Medical History: Blood Disorder, Deep Vein Thrombosis (DVT), GERD/Reflux, Syncope Additional Past Medical History / Comment(s): DVT in arms after gallbladder surgery. July 2019-several subsequent DVT's in bilateral legs. Factor II Mutation. Occasioanl blood/clots in stool. Hx Vasovagal Syncope 2004. Hiatal hernia, gastritis, HAS BEEN HAVING PROBLEMS WITH FOOD NOT GOING DOWN RECENTLY. History of Any Multi-Drug Resistant Organisms: None Reported Past Surgical History: Bariatric Surgery, Cholecystectomy, Tonsillectomy Additional Past Surgical History / Comment(s): EGD's, GASTRIC SLEEVE OCT 2022. Past Anesthesia/Blood Transfusion Reactions: Previous Problems w/ Anesthesia, Motion Sickness, Postoperative Nausea & Vomiting (PONV) Additional Past Anesthesia/Blood Transfusion Reaction / Comm: Very slow to wake up after gallbladder surgery and "gaggy when coming out", severe headache after last EGD - "may have been due to lack of caffiene". Past Psychological History: No Psychological Hx Reported Smoking Status: Former smoker Past Alcohol Use History: Occasional Additional Past Alcohol Use History / Comment(s): SMOKED FOR 20 YEARS, 1 PPD, QUIT IN 2012. Past Drug Use History: Cocaine Additional Drug Use History / Comment(s): "Recovering addict, clean since 2002. - Past Family History Father Family Medical History: Blood Disorder, Pulmonary Embolus Additional Family Medical History / Comment(s): "HAS MESH SCREENS IN BILATERAL LEGS." CLOTTING DISORDER. Daughter(s) Family Medical History: Blood Disorder Additional Family Medical History / Comment(s): FACTOR II. Son(s) Family Medical History: Blood Disorder Additional Family Medical History / Comment(s): ITP. Medications and Allergies Home Medications Medication Instructions Recorded Confirmed Type Apixaban [Eliquis] 5 mg PO BID #0 10/11/22 01/17/24 Rx Omeprazole 20 mg PO BID 12/26/23 01/17/24 History Ibuprofen [Motrin Ib] 200 mg PO Q8H PRN 01/17/24 01/17/24 History Allergies Allergy/AdvReac Type Severity Reaction Status Date / Time amoxicillin Allergy Swelling Verified 01/22/24 12:48 cephalexin Allergy Swelling Verified 01/22/24 12:48 Penicillins Allergy Anaphylaxis Verified 01/22/24 12:48 Physical Exam Vitals: Vital Signs Temp Pulse Resp BP Pulse Ox 01/22/24 16:20 62 18 137/62 92 L 01/22/24 16:05 62 16 137/71 93 L 01/22/24 15:50 64 21 146/72 94 L 01/22/24 15:35 54 L 17 140/67 99 01/22/24 15:20 76 17 135/72 98 01/22/24 15:05 97.4 F L 101 H 18 131/64 94 L 01/22/24 13:38 98.4 F 59 L 16 115/70 100 Intake and Output 01/22/24 01/22/24 01/22/24 06:59 14:59 22:59 Intake Total 1150 400 Output Total 10 Balance 1140 400 Intake: IV 1150 400 Output: Estimated Blood Loss 10 Other: Weight 77.3 kg
[2024-01-22] MEDS: ACETAMINOPHEN TAB 325 MG TAB PO PRN (19:58)
[2024-01-22] MEDS: PANTOPRAZOLE 40 MG/10 ML VIAL IVP SCH (21:03)
[2024-01-23] MEDS ORDERED: HYDROcodone/APAP 5-325MG 1 EACH TAB PO PRN (07:54)
[2024-01-23 08:25] VITALS: BP 135/80; PULSE 56; RESP 16; TEMP 98.5
[2024-01-23] MEDS: ENOXAPARIN 40 MG/0.4 ML SYRINGE SQ SCH (08:30)
[2024-01-23 10:46] LABS: HCT 34.7 % (37.2-46.3); HGB 11.2 g/dL (12.0-15.0); MCH 26.4 pg (27.0-32.0); MCHC 32.3 g/dL (32.0-37.0); MCV 81.8 FL (80.0-97.0); Mean Platelet Volume 11.7 FL (9.5-12.2); NRBC Per 100 WBC 0 X 10*3/uL (0.00-0.01); Platelet Count 216 X 10*3/uL (140-440); RBC 4.24 X 10*6/uL (4.10-5.20); RDW 12.8 % (11.5-14.5); WBC 9.33 X 10*3/uL (4.50-10.00)
[2024-01-23 11:00] LABS: BUN/Creat Ratio 15.67 Ratio (12.00-20.00); Blood Urea Nitrogen 9.4 mg/dL (9.0-27.0); Carbon Dioxide 24.6 mmol/L (21.6-31.8); Chloride 105 mmol/L (96-109); Glucose 89 mg/dL (70-110); Potassium 4.3 mmol/L (3.5-5.5); Sodium 140 mmol/L (135-145)
[2024-01-23 11:01] LABS: ALT 67 U/L (8-44); AST 52 U/L (13-35); Albumin 3.9 g/dL (3.8-4.9); Albumin/Globulin Ratio 1.86 Ratio (1.60-3.17); Alkaline Phosphatase 75 U/L (41-126); Calcium 9.1 mg/dL (8.7-10.3); Globulin 2.1 g/dL (1.6-3.3); Magnesium 1.8 mg/dL (1.5-2.4); Total Bilirubin 0.5 mg/dL (0.3-1.2)
--- NOTE | 2024-01-23 11:04 | P.DS ---
Providers Date of admission: 01/22/24 11:45 Expected date of discharge: 01/23/24 Attending physician: Ino Maradiaga Consults: 01/22/24 15:56 Consult Physician Routine Consulting Provider: Chyna Sosa Consult Reason/Comments: Postop hiatal hernia Do you want consulting provider notified?: Yes [facility] Course: Discharge diagnosis 1. Hiatal hernia status post laparoscopic repair of hiatal hernia Hospital course This is a 43-year-old female with history of hiatal hernia. She is status post laparoscopic repair of the hiatal hernia. She is tolerating liquids. Her pain is controlled. She has been up and ambulating. She is afebrile. Incision sites clean dry and intact. Patient stable for discharge. Please refer to chart for any further details. Physician Heating And Cooling Technician note has been reviewed by physician. Signing provider agrees with the documented findings, assessment, and plan of care. Patient Condition at Discharge: Stable Plan - Discharge Summary Discharge Rx Participant: Yes New Discharge Prescriptions: New Acetaminophen Tab [Tylenol] 1,000 mg PO Q6HR PRN #30 tablet PRN Reason: Pain Continue Apixaban [Eliquis] 5 mg PO BID #0 Omeprazole 20 mg PO BID Discontinued Ibuprofen [Motrin Ib] 200 mg PO Q8H PRN PRN Reason: Pain Discharge Medication List Apixaban [Eliquis] 5 mg PO BID #0 10/11/22 [Rx] Omeprazole 20 mg PO BID 12/26/23 [History] Acetaminophen Tab [Tylenol] 1,000 mg PO Q6HR PRN #30 tablet 01/23/24 [Rx] Follow up Appointment(s)/Referral(s): Ino Maradiaga MD [STAFF PHYSICIAN] - As Needed Patient Instructions/Handouts: *Surgery [facility] - (Anesthesia) Discharge Instructions Outpatient Surgery, Hiatal Hernia (DC) Activity/Diet/Wound Care/Special Instructions: No lifting over 10 pounds You may shower. No soaking or tub baths for 2 weeks Very light activity until you are reevaluated at your follow up appointment with your surgeon No straws or carbonated beverages Continue oral Tylenol scheduled every 6 hours for the next 24 to 48 hours for pain control Follow a full liquid diet for the next 2 weeks ok to resume Eliquis tomorrow Discharge Disposition: HOME SELF-CARE
--- NOTE | 2024-01-23 14:19 | P.PN ---
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 She is currently admitted under general surgery team status post elective laparoscopic repair of hiatal hernia. Surgical procedure was completed by Dr. Maradiaga on 01/22/2024. We were consulted for medical management throughout hospitalization. Physical exam: Patient seen and fully evaluated at bedside this morning. She reports feeling much better today. She reports mild postsurgical pain currently controlled. She denies any nausea or vomiting. Reports urinating without any difficulties. Reports normal healthy appetite and eating her breakfast entirely. Medically, patient stable for discharge home once cleared by primary admitting general surgery team. Vital signs reviewed and stable. General: Nontoxic, no distress and appears stated age. Derm: Skin warm and dry, normal coloration for ethnicity. Head: Atraumatic, normocephalic and symmetric. Eyes: EOMs intact, no lid lag, and anicteric sclera Mouth: no lip lesions, mucus membranes moist Cardiovascular: regular rate and rhythm with normal S1S2, no murmur, positive posterior tibial pulses bilaterally, and cap refill < 2 seconds. Lungs: Respirations even, regular, and unlabored on room air. Lungs CTA bilaterally, no rhonchi, no rales, no wheezing, and no accessory muscle usage. Abdominal: soft, 3 laparoscopic incisions intact no bleeding Ext: ROM intact. No gross muscle atrophy, no edema, no contractures Neuro: Speech clear, face symmetrical and CN II-XII grossly intact with no noted focal neuro deficits Psych: Alert and oriented to person, place, time, and situation. Appropriate and pleasant affect. Assessment and Plan of Care: Status postelective laparoscopic repair of hiatal hernia -Management per primary admitting general surgery team including DVT prophylaxis, pain management, awound/dressing management, and advancement of diet -Recommend resumption of Eliquis 5 mg twice daily once cleared by general surgeon to resume. History of recurrent DVTs -Recommend resumption of Eliquis 5 mg twice daily once cleared by general s urgeon to resume. Elevated liver enzymes -Liver enzymes elevated with AST of 52, ALT of 67 and a normal alkaline phosphatase of 75. Patient has history of elevated liver enzymes and they are currently at baseline. History of GERD History of bariatric surgery, gastric sleeve -GI prophylaxis with Protonix 40 mg IVP twice daily Data reviewed: -Vital signs reviewed and stable. Blood pressure 135/80, heart rate 56, respiratory rate 16, temp 98.5 F, and SpO2 of 90% on room air. -Labs completed and reviewed. CBC showing stable normocytic anemia with hemoglobin of 11.2 and at baseline. BMP unremarkable. Magnesium normal fi ndings at 1.8. Liver profile showing elevated AST of 52, ALT of 67, normal alkaline phosphatase of 75. Patient has a history of elevated liver enzymes and currently at baseline. Patient is cleared from medical perspective for discharge, recommend resumption of Eliquis 5 mg twice daily once cleared by general surgery team to resume. Thank you for allowing us to participate in the care of this pleasant patient. Do not hesitate to contact us with questions. Someone can be reached from the [facility] group all hours of the day at [phone] or via perfect serve. Patient was seen independently by Nurse Practitioner. This document was prepared using ioSafe dictation software. Please allow for errors in vehicle fare collector while rare they do occur. I reviewed the documentation as provided by the ZACHARIAH above, who is the original author of this note. I agree with the documented assessment and plan, with the following changes: none Objective - Vital Signs Vital signs: Vital Signs Temp 98.5 F 01/23/24 08:00 Pulse 56 L 01/23/24 08:00 Resp 16 01/23/24 08:00 BP 135/80 01/23/24 08:00 Pulse Ox 98 01/23/24 08:00 FiO2 Intake & Output 01/22/24 01/23/24 01/23/24 18:59 06:59 18:59 Intake Total 1550 420 Output Total 10 Balance 1540 420 Weight 77.3 kg Intake: IV 1550 Oral 420 Output: Estimated Blood Loss 10 Other: Voiding Method Toilet # Voids 2 - Labs CBC & Chem 7: 01/23/24 06:16 01/23/24 06:16
== END 2024-01-23 12:10 | disposition home or self-care (01) | DRG 328 ==
LOC: 2ORMAIN 11:45 → EDSTATUS 14:35 → 5NMEDONC 16:22
PROVIDERS: ADMIT Surgery; ATTEND Surgery
PROC: 0BQT4ZZ Repair Diaphragm, Percutaneous Endoscopic Approach (ICD-10-PCS; principal; 2024-01-22 12:50)
DX: K44.9 Diaphragmatic hernia without obstruction or gangrene (principal); R13.10 Dysphagia, unspecified; K21.9 Gastro-esophageal reflux disease without esophagitis; R74.01 Elevation of levels of liver transaminase levels; F14.11 Cocaine abuse, in remission; Z98.84 Bariatric surgery status; Z87.891 Personal history of nicotine dependence; Z86.718 Personal history of other venous thrombosis and embolism; Z79.01 Long term (current) use of anticoagulants; Z88.0 Allergy status to penicillin; Z88.1 Allergy status to other antibiotic agents; Z79.899 Other long term (current) drug therapy
CPT/HCPCS: 80053; 81025; 83735; 85027

== ENCOUNTER → 2024-06-08 | Outpatient (CLI) | payer BC ==
--- NOTE | 2024-06-08 17:26 | CT ---
EXAMINATION TYPE: CT brain wo con DATE OF EXAM: 06/08/2024 COMPARISON: None INDICATION: headache, dizziness, visual changes. no injury. DLP: 1109 mGycm, Automated exposure control for dose reduction was used. CONTRAST: None CT of the brain is performed utilizing 3 mm thick sections through the posterior fossa and 3 mm thick sections through the remaining calvarium. Study is performed within 24 hours of arrival to the hosp ital. No abnormal hyperdensity is present to suggest an acute intracranial hemorrhage. No mass lesion is evident. No acute infarcts are evident. Ventricles and sulci are appropriate for the patient age. Paranasal sinuses and mastoid air cells within the [id number] are clear. IMPRESSION: 1. No acute intracranial process. Follow-up MRI can be performed as clinically indicated.
== END | disposition home or self-care (01) ==
LOC: RADCTMAIN 16:24
PROVIDERS: ATTEND Family Medicine
DX: R22.0 Localized swelling, mass and lump, head (principal); R42 Dizziness and giddiness; R51.9 Headache, unspecified
CPT/HCPCS: 70450

== ENCOUNTER 2024-08-24 12:25 | Day surgery (SDC) | payer BC ==
[2024-08-24] MEDS ORDERED: LIDOCAINE 1% (10MG/ML) FOR IV START INTRADERMA PRN (13:13)
[2024-08-24] MEDS: ONDANSETRON 4 MG/2 ML VIAL IVP STA (13:25)
[2024-08-24 13:28] VITALS: TEMP 98
[2024-08-24] MEDS: IV FLUID CONTINUATION 1,000 ML IV ONE (13:30)
[2024-08-24] MEDS: LACTATED RINGERS 1,000 ML IV SCH (13:31)
[2024-08-24] MEDS ORDERED: PROPOFOL 10 MG/ML 20 ML VIAL IV ONE (13:42)
[2024-08-24] MEDS ORDERED: LIDOCAINE 2% (PF) 20 MG/ML 5 ML VIAL ONE (13:42)
--- NOTE | 2024-08-24 13:45 | P.GSHP ---
History of Present Illness H&P Date: 08/24/24 Chief Complaint: Gerd This a 43-year-old female presents today for EGD. Patient has issues with GERD. Past Medical History Past Medical History: Blood Disorder, Deep Vein Thrombosis (DVT), GERD/Reflux, Syncope Additional Past Medical History / Comment(s): DVT in arms after gallbladder surgery. July 2019-several subsequent DVT's in bilateral legs. Factor II Mutation. Occasional blood/clots in stool. Hx Vasovagal Syncope 2004. Hiatal hernia, gastritis, HAS BEEN HAVING PROBLEMS WITH FOOD NOT GOING DOWN RECENTLY; pain in chest when eating, occasional vomiting about every other day. History of Any Multi-Drug Resistant Organisms: None Reported Past Surgical History: Bariatric Surgery, Cholecystectomy, Hernia Repair, Tonsillectomy Additional Past Surgical History / Comment(s): EGD's, GASTRIC SLEEVE OCT 2022. Past Anesthesia/Blood Transfusion Reactions: Previous Problems w/ Anesthesia, Motion Sickness, Postoperative Nausea & Vomiting (PONV) Additional Past Anesthesia/Blood Transfusion Reaction / Comment(s): Very slow to wake up after gallbladder surgery and "gaggy when coming out", severe headache after last EGD - "may have been due to lack of caffeine". Smoking Status: Former smoker - Past Family History Father Family Medical History: Blood Disorder, Pulmonary Embolus Additional Family Medical History / Comment(s): "HAS MESH SCREENS IN BILATERAL LEGS." CLOTTING DISORDER. Daughter(s) Family Medical History: Blood Disorder Additional Family Medical History / Comment(s): FACTOR II. Son(s) Family Medical History: Blood Disorder Additional Family Medical History / Comment(s): ITP. Medications and Allergies Home Medications Medication Instructions Recorded Confirmed Type Apixaban [Eliquis] 5 mg PO BID #0 10/11/22 08/24/24 Rx Omeprazole 20 mg PO BID 12/26/23 08/24/24 History Acetaminophen Tab [Tylenol] 1,000 mg PO Q6HR PRN #30 tablet 01/23/24 08/24/24 Rx hydroCHLOROthiazide 25 mg PO DAILY 08/19/24 08/24/24 History Allergies Allergy/AdvReac Type Severity Reaction Status Date / Time amoxicillin Allergy Swelling Verified 08/24/24 13:15 cephalexin Allergy Swelling Verified 08/24/24 13:15 Penicillins Allergy Anaphylaxis Verified 08/24/24 13:15 Surgical - Exam Vital Signs Temp Pulse Resp BP Pulse Ox 98 F 47 L 16 128/66 100 08/24/24 13:26 08/24/24 13:26 08/24/24 13:08/24/24 13:08/24/24 13:26 - General well developed, well nourished, no distress - Eyes PERRL - ENT normal pinna, normal nares - Neck no masses - Respiratory normal expansion - Cardiovascular Rhythm: regular - Abdomen Abdomen: soft, non tender Assessment and Plan Assessment: Gerd. Will perform EGD.
--- NOTE | 2024-08-24 13:52 | P.OP ---
Date of Procedure: 08/24/24 Preoperative Diagnosis: Gerd Postoperative Diagnosis: Antral gastritis Procedure(s) Performed: EGD Anesthesia: MAC Surgeon: Ino Maradiaga Pathology: other (Antrum) Condition: stable Disposition: PACU Description of Procedure: The patient was placed on the endoscopy table in the lateral position. She re ceived IV sedation. The Gastroflux oropharynx passed in the esophagus and stomach. Scope was placed through the pylorus. The first and second portion of the duodenum appeared normal. The scope was brought back to the antrum this appeared mildly inflamed. A biopsy performed. Scope was then brought back through the stomach. Patient had previous sleeve gastrectomy. There is no evidence of any obstruction or inflammation of the gastric sleeve. The GE junction was at 40 cm. No significant hiatal hernia can be visualized. The distal esophagus appeared normal. The proximal esophagus appeared normal. Scope withdrawn for the patient.
[2024-08-24 14:11] VITALS: RESP 18
[2024-08-24 14:29] VITALS: BP 99/58; PULSE 53
[2024-08-24] MEDS: DEXAMETHASONE SOD PHOSPHATE 4 MG/ML 1 ML VIAL IVP STA (14:45)
[2024-08-24] MEDS: FAMOTIDINE 20 MG/2 ML VIAL IV STA (14:46)
== END 2024-08-24 15:34 | disposition home or self-care (01) ==
LOC: ORWHC2ENDO 12:25
PROVIDERS: ATTEND Surgery
DX: K21.9 Gastro-esophageal reflux disease without esophagitis
CPT/HCPCS: 43239; 81025; 88305

== ENCOUNTER → 2025-03-02 | Outpatient (CLI) | payer BC ==
--- NOTE | 2025-03-02 09:27 | XR ---
EXAMINATION TYPE: XR sinus DATE OF EXAM: 03/02/2025 9:11 AM COMPARISON: None CLINICAL INDICATION: Female, 44 years old with history of G501 ATYPICAL FACIAL PAIN; [facility] TECHNIQUE: 4 views the sinuses frontal, bilateral lateral and [place]. FINDINGS: Radiographic evaluation of the orbits fail to demonstrate evidence of an orbital fracture. There is n o radiopaque foreign body identified. The adjacent paranasal sinuses are well aerated an without evid ence of intra-cavitary fluid accumulation. The nasal bridge appears intact. The mandible appears inta ct. Mastoid air cells are well aerated. The frontal sinus and maxillary sinuses are well aerated. If a radiographically occult fracture is clinically suspected, thin-section CT scan of the orbits is a more sensitive study to exclude subtle maxillofacial traumatic injuries. IMPRESSION: No evidence of significant paranasal sinus disease. Consider CT sinus for complete evaluation of the sinuses. No radiographic evidence of radiopaque foreign body. [facility], , 03/02/2025 9:25 AM
== END | disposition home or self-care (01) ==
LOC: RADXRYALE 08:50
PROVIDERS: ATTEND Physician Assistant Medical
DX: G50.1 Atypical facial pain (principal)
CPT/HCPCS: 70220

== ENCOUNTER 2025-03-24 10:41 | Emergency (ER) | payer BC ==
[2025-03-24 10:47] VITALS: TEMP 98.5
--- NOTE | 2025-03-24 11:13 | ED ---
Recheck HPI - General Chief Complaint: Recheck/Abnormal Lab/Rx Stated Complaint: ABN Labs Time Seen by Provider: 03/24/25 11:10 Source: patient, RN notes reviewed Mode of arrival: ambulatory Limitations: no limitations - History of Present Illness Initial Comments: 44-year-old female sent by PCP for low hemoglobin. Hemoglobin was checked by her PCP yesterday and was found to be 6.8. Patient is currently asymptomatic. States she chronically passes blood clots in stool however has not passed blood clots since December. She has a history of external hemorrhoids. She also has factor II mutation causing her to have frequent DVTs therefore she is on Eliquis. History of bariatric surgery, cholecystectomy, and hernia repair. States she follows closely with Dr. Maradiaga and has had colonoscopies which returned normal. She recently took steroid course as she is being worked up for trigeminal neuralgia. Denies lightheadedness or dizziness. She does endorse some blurry vision. Denies new abdominal pain or vomiting. Last menstrual cycle was last week however patient states it was a fairly light cycle compared to her usual. - Related Data Home Medications Medication Instructions Recorded Confirmed Omeprazole 20 mg PO BID 12/26/23 08/24/24 hydroCHLOROthiazide 25 mg PO DAILY 08/19/24 08/24/24 Previous Rx's Medication Instructions Recorded Apixaban [Eliquis] 5 mg PO BID #0 10/11/22 Acetaminophen Tab [Tylenol] 1,000 mg PO Q6HR PRN #30 tablet 01/23/24 Allergies Allergy/AdvReac Type Severity Reaction Status Date / Time amoxicillin Allergy Swelling Verified 03/24/25 10:47 cephalexin Allergy Swelling Verified 03/24/25 10:47 Penicillins Allergy Anaphylaxis Verified 03/24/25 10:47 Review of Systems ROS Statement: Those systems with pertinent positive or pertinent negative responses have been documented in the HPI. ROS Other: All systems not noted in ROS Statement are negative. Past Medical History Past Medical History: Blood Disorder, Deep Vein Thrombosis (DVT), GERD/Reflux, Syncope Additional Past Medical History / Comment(s): DVT in arms after gallbladder surgery. July 2019-several subsequent DVT's in bilateral legs. Factor II Mutation. Occasional blood/clots in stool. Hx Vasovagal Syncope 2004. Hiatal hernia, gastritis, HAS BEEN HAVING PROBLEMS WITH FOOD NOT GOING DOWN RECENTLY; pain in chest when eating, occasional vomiting about every other day. History of Any Multi-Drug Resistant Organisms: None Reported Past Surgical History: Bariatric Surgery, Cholecystectomy, Hernia Repair, Tonsillectomy Additional Past Surgical History / Comment(s): EGD's, GASTRIC SLEEVE OCT 2022. Past Anesthesia/Blood Transfusion Reactions: Previous Problems w/ Anesthesia, Motion Sickness, Postoperative Nausea & Vomiting (PONV) Additional Past Anesthesia/Blood Transfusion Reaction / Comment(s): Very slow to wake up after gallbladder surgery and "gaggy when coming out", severe headache after last EGD - "may have been due to lack of caffeine". Past Psychological History: No Psychological Hx Reported Smoking Status: Former smoker Past Alcohol Use History: None Reported Past Drug Use History: None Reported - Past Family History Father Family Medical History: Blood Disorder, Pulmonary Embolus Additional Family Medical History / Comment(s): "HAS MESH SCREENS IN BILATERAL LEGS." CLOTTING DISORDER. Daughter(s) Family Medical History: Blood Disorder Additional Family Medical History / Comment(s): FACTOR II. Son(s) Family Medical History: Blood Disorder Additional Family Medical History / Comment(s): ITP. General Exam Limitations: no limitations General appearance: alert, in no apparent distress Head exam: Present: atraumatic, normocephalic, normal inspection Eye exam: Present: normal appearance, PERRL, EOMI. Absent: scleral icterus, conjunctival injection, periorbital swelling ENT exam: Present: normal exam, mucous membranes moist GI/Abdominal exam: Present: soft, normal bowel sounds. Absent: distended, tenderness, guarding, rebound, rigid Course Vital Signs 03/24/25 10:45 Temperature 98.5 F Pulse Rate 69 Respiratory 20 Rate Blood Pressure 133/70 O2 Sat by Pulse 99 Oximetry Medical Decision Making - Medical Decision Making Was pt. sent in by a medical professional or institution (, PA, SODIUM CHLORITE OPERATOR, urgent care, hospital, or jail...) When possible be specific @ -Sent by PCP for low hemoglobin Did you speak to anyone other than the patient for history (EMS, parent, family, police, friend...)? What history was obtained from this source @ -No Did you review nursing and triage notes (agree or disagree)? Why? @ -I reviewed and agree with nursing and triage notes Were old charts reviewed (outside hosp., previous admission, EMS record, old EKG, old radiological studies, urgent care reports/EKG's, jail records)? Report findings @ -No old charts were reviewed Differential Diagnosis (chest pain, altered mental status, abdominal pain women, abdominal pain men, vaginal bleeding, weakness, fever, dyspnea, syncope, headache, dizziness, GI bleed, back pain, seizure, CVA, palpatations, mental health, musculoskeletal)? @ -Differential GI Bleed: Esophageal varices, aortoenteric fistula, Selina-Guzman, gastritis, peptic ulcer disease, diverticulosis, inflammatory bowel disease, hemorrhoids, fissure, colitis, malignancy, Meckel's diverticulum, this is not meant to be an all- inclusive list. EKG interpreted by me (3pts min.). @ -None X-rays interpreted by me (1pt min.). @ -None done CT interpreted by me (1pt min.). @ -None done U/S interpreted by me (1pt. min.). @ -None done What testing was considered but not performed or refused? (CT, X-rays, U/S, labs)? Why? @ -None What meds were considered but not given or refused? Why? @ -None Did you discuss the management of the patient with other professionals (professionals i.e. , PA, SODIUM CHLORITE OPERATOR, lab, RT, psych nurse, social work faculty member, lawyer criminal, teacher, chief analytics officer, heel caser)? Give summary @ -No Was smoking cessation discussed for >3mins.? @ -No Was critical care preformed (if so, how long)? @ -No Were there social determinants of health that impacted care today? How? (Homelessness, low income, unemployed, alcoholism, drug addiction, transportation, low edu. Level, literacy, decrease access to med. care, long term, rehab)? @ -No Was there de-escalation of care discussed even if they declined (Discuss DNR or withdrawal of care, Hospice)? DNR status @ -No What co-morbidities impacted this encounter? (DM, HTN, Smoking, COPD, CAD, Cancer, CVA, ARF, Chemo, Hep., AIDS, mental health diagnosis, sleep apnea, morbid obesity)? @ -None Was patient admitted / discharged? Hospital course, mention meds given and route, prescriptions, significant lab abnormalities, going to OR and other pertinent info. @ -Discharge. 44-year-old female sent by PCP for low hemoglobin of 6.8. Patient is currently asymptomatic. She is on Eliquis. Vital signs within acceptable limits. Abdomen soft and nonsurgical. Rectal examination performed by Santana Benson PA-C as patient requests a male provider and was unremarkable. Hemoglobin is 7.4 today. Discussed results with patient. As hemoglobin is above the threshold for transfusion, patient can be safely discharged home with close outpatient follow-up for recheck. Appropriate return precautions discussed. Case was discussed with my ED attending Dr. Murray. Undiagnosed new problem with uncertain prognosis? @ -No Drug Therapy requiring intensive monitoring for toxicity (Heparin, Nitro, Insulin, Cardizem)? @ -No Were any procedures done? @ -No Diagnosis/symptom? @ -Low hemoglobin, anemia Acute, or Chronic, or Acute on Chronic? @ -Acute Uncomplicated (without systemic symptoms) or Complicated (systemic symptoms)? @ -Uncomplicated Side effects of treatment? @ -No Exacerbation, Progression, or Severe Exacerbation? @ -No Poses a threat to life or bodily function? How? (Chest pain, USA, HI, pneumonia, PE, COPD, DKA, ARF, appy, cholecystitis, CVA, Diverticulitis, Homicidal, Suicidal, threat to staff... and all critical care pts) @ -No - Lab Data Result diagrams: 03/24/25 11:00 03/24/25 11:00 Lab Results 03/24/25 03/24/25 03/24/25 Range/Units 11:00 11:00 11:00 WBC 4.69 (4.50-10.00) 10*3/uL RBC 4.01 L (4.10-5.20) 10*6/uL Hgb 7.4 L (12.0-15.0) g/dL Hct 26.6 L (37.2-46.3) % MCV 66.3 L (80.0-97.0) fL MCH 18.5 L (27.0-32.0) pg MCHC 27.8 L (32.0-37.0) g/dL Plt Count 320 (140-440) 10*3/uL MPV 10.2 (9.5-12.2) fL Immature Gran % (Auto) 0.2 % Neutrophils % 62.9 % Lymphocytes % 27.1 % Monocytes % 8.1 % Eosinophils % 1.1 % Basophils % 0.6 % Immature Gran # 0.01 (0.00-0.04) 10*3/uL Neutrophils # 2.95 (1.80-7.70) 10*3/uL Lymphocytes # 1.27 (0.90-5.00) 10*3/uL Monocytes # 0.38 (0.20-1.00) 10*3/uL Eosinophils # 0.05 (0.04-0.35) 10*3/uL Basophils # 0.03 (0.00-0.10) 10*3/uL PT 10.0 (10.0-12.5) sec INR 0.9 (<1.2) APTT 22.0 (22.0-30.0) sec Sodium 138 (137-145) mmol/L Potassium 3.7 (3.5-5.1) mmol/L Chloride 102 (98-107) mmol/L Carbon Dioxide 26 (22-30) mmol/L Anion Gap 10 mmol/L BUN 7 (7-17) mg/dL Creatinine 0.56 (0.52-1.04) mg/dL Est GFR (CKD-EPI)AfAm >90 (>60 ml/min/1.73 sqM) Est GFR (CKD-EPI)NonAf >90 (>60 ml/min/1.73 sqM) Glucose 89 (74-99) mg/dL Calcium 8.9 (8.4-10.2) mg/dL Total Bilirubin 0.3 (0.2-1.3) mg/dL AST 23 (14-36) U/L ALT 15 (4-34) U/L Alkaline Phosphatase 92 (38-126) U/L Total Protein 6.9 (6.3-8.2) g/dL Albumin 4.2 (3.5-5.0) g/dL Disposition Clinical Impression: Low hemoglobin, Anemia Disposition: HOME SELF-CARE Condition: Stable Instructions (If sedation given, give patient instructions): Anemia (ED) Is patient prescribed a controlled substance at d/c from ED?: No Referrals: Mirta Rueda PAC [REFERRING] - 1-2 days Time of Disposition: 12:04
[2025-03-24 11:17] LABS: Basophils # (A) 0.03 10*3/uL (0.00-0.10); Basophils % (A) 0.6 %; Eosinophils # (A) 0.05 10*3/uL (0.04-0.35); Eosinophils % (A) 1.1 %; HCT 26.6 % (37.2-46.3); HGB 7.4 g/dL (12.0-15.0); Lymphocytes # (A) 1.27 10*3/uL (0.90-5.00); Lymphocytes % (A) 27.1 %; MCH 18.5 pg (27.0-32.0); MCHC 27.8 g/dL (32.0-37.0); MCV 66.3 fL (80.0-97.0); Mean Platelet Volume 10.2 fL (9.5-12.2); Monocytes # (A) 0.38 10*3/uL (0.20-1.00); Monocytes % (A) 8.1 %; Neutrophils # (A) 2.95 10*3/uL (1.80-7.70); Neutrophils % (A) 62.9 %; Platelet Count 320 10*3/uL (140-440); RBC 4.01 10*6/uL (4.10-5.20); RDW 16.8 % (11.5-14.5); WBC 4.69 10*3/uL (4.50-10.00)
[2025-03-24 11:28] LABS: ALT 15 U/L (4-34); AST 23 U/L (14-36); African American GFR (CKD) >90 (>60 ml/min/1.73 sqM); Albumin 4.2 g/dL (3.5-5.0); Alkaline Phosphatase 92 U/L (38-126); Anion Gap 10 mmol/L; Blood Urea Nitrogen 7 mg/dL (7-17); Calcium 8.9 mg/dL (8.4-10.2); Carbon Dioxide 26 mmol/L (22-30); Chloride 102 mmol/L (98-107); Glucose 89 mg/dL (74-99); Non-African American GFR(CKD) >90 (>60 ml/min/1.73 sqM); Potassium 3.7 mmol/L (3.5-5.1); Sodium 138 mmol/L (137-145); Total Bilirubin 0.3 mg/dL (0.2-1.3); Total Protein 6.9 g/dL (6.3-8.2)
[2025-03-24 11:35] LABS: INR 0.9 (<1.2)
[2025-03-24 12:22] VITALS: BP 127/84; PULSE 74; RESP 18
== END 2025-03-24 12:22 | disposition home or self-care (01) ==
LOC: EC 10:41
DX: D64.9 Anemia, unspecified (principal); Z87.891 Personal history of nicotine dependence; Z88.0 Allergy status to penicillin; Z88.1 Allergy status to other antibiotic agents; Z79.01 Long term (current) use of anticoagulants
CPT/HCPCS: 36415; 80053; 85025; 85610; 85730; 99283